=== PATIENT | female | born 1955 | race African-American/Black ===

== ENCOUNTER 2016-09-19 06:33 | Outpatient (CLI) | payer MEDICARE, OTHER ==
[~2016-09-19 06:33] MED LIST: ALBUTEROL SULF8.5 GM INH; ASPIR 8181 MG ORAL; ASPIRIN EC325 MG ORAL; BENADRYL25 MG ORAL; BENAZEPRIL HCL10 MG ORAL; CYPROHEPTADINE H4 MG PO; ENALAPRIL MALEA20 MG ORAL; KEFLEX500 MG ORAL; LOSARTAN POTASS50 MG ORAL; MEGESTROL ACETA40 MG PO; NYSTATIN1 EAC1 PO; OMEPRAZOLE10 M1 ORAL; ONDANSETRON ODT4 MG ORAL; RESTASIS1 EACH BOTH EYES; ZITHROMAX250 MG ORAL
--- NOTE | 2016-09-19 10:10 | Diagnostic Imaging Report ---
Clinical Indication: SOB Technique: Spiral acquisition obtained through the chest. No IV contrast utilized, per high resolution protocol. Axial 5 x 5 mm slices were reconstructed. Axial 1 mm thick slices were reconstructed using high resolution algorithm at 10 mm intervals. Multiplanar reconstructions generated. Total dose length product 634 mGycm. CTDIvol(s) 18 mGy. Dose reduction achieved using automated exposure control Comparison: None Findings: A calcified granuloma is seen in the posterior right upper lobe, adjacent to the pleural surface. A calcified granuloma is seen at the left lung base and the third in the left upper lobe. There are calcifications within bilateral hilar lymph nodes.. Some linear opacities are seen at the left lung base, likely reflecting scarring. The lungs and pleural spaces are otherwise clear. No infiltrates, effusions, congestion, masses, or nodules. High-resolution images are unremarkable demonstrating no evidence of interstitial septal thickening, bronchiectasis, nodularity, groundglass opacity, or other manifestations of interstitial disease. Included portions of the thyroid are unremarkable. No mediastinal or hilar mass or adenopathy. Normal heart size. No pericardial effusion. Unremarkable esophagus Somewhat prominent nodes are seen the bilateral axillae, measuring up to 2.7 cm long axis dimension. There are somewhat prominent supraclavicular nodes. No chest wall mass or adenopathy demonstrated. The bones are unremarkable except for mild degenerative spondylosis changes. The included upper abdominal anatomy demonstrates a calcified granuloma within the right hepatic lobe. There are prominent but not frankly enlarged retroperitoneal lymph nodes. Impression: Evidence of old granulomatous disease in the bilateral pulmonary parenchyma and bilateral timothy, as well as within the liver No evidence of acute pulmonary disease. No evidence of interstitial disease Prominent borderline enlarged bilateral axillary lymph nodes. Prominent cervical, supraclavicular, and retroperitoneal nodes. Adenopathy not excludable. Correlate with clinical findings The CT scanner at [facility] is accredited by the [employer] and the scans are performed using protocols designed to limit radiation exposure to as low as reasonably achievable to attain images of sufficient resolution adequate for diagnostic evaluation.
== END 2016-09-19 08:30 | disposition home or self-care (01) ==
LOC: CAT 06:33
DX: R05 Cough (principal); R07.9 Chest pain, unspecified; R06.02 Shortness of breath; R59.9 Enlarged lymph nodes, unspecified; D71 Functional disorders of polymorphonuclear neutrophils
CPT/HCPCS: 71250

== ENCOUNTER 2017-01-21 09:47 | Emergency (ER) | payer MEDICARE, OTHER ==
[~2017-01-21] VITALS: Ht 157.5 cm; Wt 67.6 kg
--- NOTE | 2017-01-21 10:24 | Emergency Room Report ---
History of Present Illness General Chief Complaint: Pain Source: Patient Present Illness HPI Is a 61-year-old female who presented after increased facial swelling. The patient was noted to have swelling increased of bilateral the face near her sinuses. The patient had been seen by her ENT who had started her on clarithromycin. The patient reported having taken the medications for approximately 2 daysShe denies any fever Allergies: Coded Allergies: IBUPROFEN (Verified Allergy, Unknown, 10/28/15) PEANUT (Verified Allergy, Unknown, 11/27/08) PENICILLINS (Unverified Allergy, Unknown, 10/28/15) SULFA (SULFONAMIDE ANTIBIOTICS) (Verified Allergy, Unknown, 10/28/15) TOMATO (Verified Allergy, Unknown, 10/05/12) Uncoded Allergies: PENICILLIN (Allergy, Unknown, 10/28/15) Patient History Past Medical History: see triage record Reviewed Nursing Documentation: PMH: Agreed, PSxH: Agreed Nursing Documentation-PMH Hx Cardiac Problems: Yes - murmur Hx Hypertension: Yes Hx Gastrointestinal Problems: Yes - Acid reflux Hx Neurological Problems: Yes - Sjorn's syndrome, Raynaud's syndrome, osteoarthritis Review of Systems All Other Systems: negative except mentioned in HPI Physical Exam Vital Signs Date Time Temp Pulse Resp B/P (MAP) Pulse Ox O2 Delivery O2 Flow Rate FiO2 01/21/17 09:51 97.9 90 20 128/72 99 Room Air Sp02 EP Interpretation: reviewed, normal General Appearance: normal inspection, well appearing, no apparent distress, alert, GCS 15, non-toxic Head: atraumatic ENT: normal ENT inspection, hearing grossly normal, normal voice Neck: normal inspection, full range of motion, supple, no bony tend Respiratory: normal inspection, lungs clear, normal breath sounds, no respiratory distress, no retraction, no wheezing Cardiovascular #1: regular rate, rhythm, no edema Gastrointestinal: normal inspection, normal bowel sounds, non tender, soft, no guarding, no hernia Genitourinary: no CVA tenderness Musculoskeletal: normal inspection, back normal, normal range of motion Neurologic: normal inspection, alert, responsive, speech normal Psychiatric: normal inspection, judgement/insight normal, mood/affect normal Skin: normal inspection, normal color, no rash Medical Decision Making Last Vital Signs Date Time Temp Pulse Resp B/P (MAP) Pulse Ox O2 Delivery O2 Flow Rate FiO2 01/21/17 09:51 97.9 90 20 128/72 99 Room Air Referrals: NON PHYSICIAN (PCP) Mt Goldman Jan 21, 2017 10:24
[2017-01-21] MEDS ORDERED: Morphine Sulfate 2mg/ml Inj IVP ONE (10:30)
[2017-01-21] MEDS ORDERED: Acetaminophen 500mg (ES) tab ORAL ONE (10:30)
[2017-01-21 10:42] LABS: BASOPHILS % (AUTO) 0.7 % (0.0-2.0); EOSINOPHILS % (AUTO) 1.2 % (0.0-3.0); LYMPHOCYTES % (AUTO) 25.9 % (20.0-45.0); MEAN CORPUSCULAR HEMOGLOBIN 25.1 PG (27.0-31.0); MEAN CORPUSCULAR HGB CONC 30.9 G/DL (32.0-36.0); MEAN CORPUSCULAR VOLUME 81 FL (80-99); MEAN PLATELET VOLUME 6.6 FL (6.5-10.1); MONOCYTES % (AUTO) 12.3 % (1.0-10.0); PLATELET COUNT 283 K/UL (150-450); RED BLOOD COUNT 3.83 M/UL (4.20-5.40); RED CELL DISTRIBUTION WIDTH 14.3 % (11.6-14.8); WHITE BLOOD COUNT 6.3 K/UL (4.8-10.8)
[2017-01-21 10:48] LABS: ALANINE AMINOTRANSFERASE 7 U/L (3-33); ANION GAP 13 (5-15); ASPARTATE AMINO TRANSFERASE 18 U/L (5-40); CALCIUM 9.3 mg/dL (8.6-10.2); CARBON DIOXIDE 26 mEQ/L (20-30); CHLORIDE 96 mEQ/L (98-107); CREATININE 0.8 mg/dL (0.5-0.9); GLOMERULAR FILTRATION RATE > 60 mL/min (>60); HEMOLYSIS 43; SODIUM 135 mEQ/L (135-145); TOTAL PROTEIN 7.9 g/dL (6.6-8.7)
--- NOTE | 2017-01-21 12:01 | Diagnostic Imaging Report ---
Indication: Facial pain Technique: CT maxillofacial was performed utilizing automated exposure control with intravenous contrast material. Axial and coronal images were generated. CT dose: Total DLP 628 mGycm; CTDI vol 28.2 mGy Comparison: None Findings: There is premaxillary and infranasal stranding is noted. Within the bilateral nasal/premaxillary soft tissues, there are small bilateral hypodense areas measuring approximately 9 mm on the right and 10 mm on the left series 3 image 39 and series 5 image 9 abutting the anteromedial aspects of the bilateral maxillary sinuses. There is mild mucosal thickening of the paranasal sinuses but no paranasal sinus air-fluid levels are identified. The orbits are grossly unremarkable. Visualized intracranial compartment is unremarkable. Small bilateral cervical nodes are seen measuring up to 10 mm. Impression: Premaxillary and infranasal subcutaneous stranding. Small bilateral hypodense areas with subtle rim enhancement involving the bilateral nasal/premaxillary soft tissues measuring 9 mm on the right and 10 mm on the left abutting the anteromedial aspects of the bilateral maxillary sinuses series 3 image 39 and series 5 image 9. Findings could represent phlegmon although early abscess cannot be excluded. Clinical correlation/followup recommended. Minimal mucosal thickening of the paranasal sinuses. No evidence of acute sinusitis. The CT scanner at [facility] is accredited by the [employer] and the scans are performed using protocols designed to limit radiation exposure to as low as reasonably achievable to attain images of sufficient resolution adequate for diagnostic evaluation.
[2017-01-21] MEDS ORDERED: NORCO 5-325 TA1 EACH ORAL (12:15)
[2017-01-21 12:35] VITALS: BP 130/82
[2017-01-21 12:36] VITALS: BP 132/97
== END 2017-01-21 12:37 | disposition home or self-care (01) ==
LOC: EMR 10:07
DX: R60.0 Localized edema (principal); I10 Essential (primary) hypertension; K21.9 Gastro-esophageal reflux disease without esophagitis; Z88.2 Allergy status to sulfonamides; Z88.0 Allergy status to penicillin; Z88.6 Allergy status to analgesic agent; Z91.010 Allergy to peanuts
CPT/HCPCS: 36415; 70488; 80053; 85025; 99284; Q9967

== ENCOUNTER 2017-01-25 13:39 | Emergency (ER) | payer MEDICARE, OTHER ==
[~2017-01-25] VITALS: Ht 157.5 cm; Wt 67.6 kg
[~2017-01-25 13:39] MED LIST changes: +NORCO 5-325 TA1 EACH ORAL
[2017-01-25 13:58] VITALS: BP 186/119
--- NOTE | 2017-01-25 14:13 | Emergency Room Report ---
History of Present Illness General Chief Complaint: Edema Source: Patient Present Illness HPI Patient presented for a right-sided facial swelling. The patient noted this gradual onset. Patient had been previously prescribed clairithromycin. Patient was noted to have increased swelling to the right side of her face. The patient been previously seen by ENT and was started on oral antibiotics. Patient was seen by me and had previous imaging study which showed phlegmon bilaterally to her face. She denied any fever. Allergies: Coded Allergies: PEANUT (Verified Allergy, Severe, Anaphylaxis, 01/25/17) IBUPROFEN (Verified Allergy, Intermediate, 01/25/17) bloody nose PENICILLINS (Unverified Allergy, Intermediate, Hives, 01/25/17) swelling SULFA (SULFONAMIDE ANTIBIOTICS) (Verified Allergy, Intermediate, Hives, ) DIPHENHYDRAMINE (Verified Allergy, Mild, Itching, 01/25/17) TOMATO (Verified Allergy, Unknown, Itching, 01/25/17) Uncoded Allergies: PENICILLIN (Allergy, Unknown, 10/28/15) Patient History Past Medical History: see triage record Reviewed Nursing Documentation: PMH: Agreed, PSxH: Agreed Nursing Documentation-PMH Hx Cardiac Problems: Yes - murmur Hx Hypertension: Yes Hx Gastrointestinal Problems: Yes - Acid reflux Hx Neurological Problems: Yes - Sjorn's syndrome, Raynaud's syndrome, osteoarthritis Review of Systems All Other Systems: negative except mentioned in HPI Physical Exam Vital Signs Date Time Temp Pulse Resp B/P (MAP) Pulse Ox O2 Delivery O2 Flow Rate FiO2 01/25/17 13:44 98.4 87 18 186/119 100 Room Air Sp02 EP Interpretation: reviewed, normal General Appearance: normal inspection, well appearing, no apparent distress, alert, GCS 15 Head: atraumatic ENT: normal ENT inspection, hearing grossly normal, normal voice, other - facial swelling slight increased from prior visit Neck: normal inspection, full range of motion, supple, no bony tend Respiratory: normal inspection, lungs clear, normal breath sounds, no respiratory distress, no retraction, no wheezing Cardiovascular #1: regular rate, rhythm, no edema Gastrointestinal: normal inspection, normal bowel sounds, non tender, soft, no guarding, no hernia Genitourinary: no CVA tenderness Musculoskeletal: normal inspection, back normal, normal range of motion Neurologic: normal inspection, alert, responsive, speech normal Psychiatric: normal inspection, judgement/insight normal, mood/affect normal Skin: no rash, other - right side slight swelling no fluctuance Medical Decision Making Diagnostic Impression: Primary Impression: Cellulitis of face ER Course Patient presented for increased facial swelling. Differential diagnosis included was not limited to abscess, cellulitis, allergic reaction and among others. Because of complexity of patient's case laboratory testing was ordered. The patient was noted to have recent CT of the facial area which showed some area of infection. The patient had previously been taking antibiotics but had discontinued antibiotics despite my previous advise to continue. The patient was noted to have normal white blood count. The patient was given IV steroids. The patient was also started on IV antibiotics. The patient is advised to follow up with primary care doctor in 1-2 days. Patient is advised to return if any worsening condition or if any changes in status that are concerning.Patient was advised followup with her ENT physician. Labs Test 01/25/17 14:16 White Blood Count 6.1 K/UL (4.8-10.8) Red Blood Count 3.82 M/UL (4.20-5.40) Hemoglobin 9.3 G/DL (12.0-16.0) Hematocrit 30.6 % (37.0-47.0) Mean Corpuscular Volume 80 FL (80-99) Mean Corpuscular Hemoglobin 24.3 PG (27.0-31.0) Mean Corpuscular Hemoglobin Concent 30.3 G/DL (32.0-36.0) Red Cell Distribution Width 14.0 % (11.6-14.8) Platelet Count 318 K/UL (150-450) Mean Platelet Volume 6.1 FL (6.5-10.1) Neutrophils (%) (Auto) 57.2 % (45.0-75.0) Lymphocytes (%) (Auto) 28.0 % (20.0-45.0) Monocytes (%) (Auto) 12.3 % (1.0-10.0) Eosinophils (%) (Auto) 1.2 % (0.0-3.0) Basophils (%) (Auto) 1.3 % (0.0-2.0) Prothrombin Time 10.1 SEC (9.30-11.50) Prothromb Time International Ratio 1.0 (0.9-1.1) Activated Partial Thromboplast Time 29 SEC (23-33) Sodium Level 137 mEQ/L (135-145) Potassium Level 3.1 mEQ/L (3.4-4.9) Chloride Level 97 mEQ/L (98-107) Carbon Dioxide Level 27 mEQ/L (20-30) Anion Gap 13 (5-15) Blood Urea Nitrogen 11 mg/dL (7-23) Creatinine 0.6 mg/dL (0.5-0.9) Estimat Glomerular Filtration Rate > 60 mL/min (>60) Glucose Level 112 mg/dL (74-106) Calcium Level 9.5 mg/dL (8.6-10.2) Total Bilirubin 0.4 mg/dL (0.0-1.2) Aspartate Amino Transf (AST/SGOT) 16 U/L (5-40) Alanine Aminotransferase (ALT/SGPT) 7 U/L (3-33) Alkaline Phosphatase 95 U/L (35-104) Total Protein 8.1 g/dL (6.6-8.7) Albumin 4.0 g/dL (3.5-5.2) Globulin 4.1 g/dL Albumin/Globulin Ratio 0.9 (1.0-2.7) Last Vital Signs Date Time Temp Pulse Resp B/P (MAP) Pulse Ox O2 Delivery O2 Flow Rate FiO2 01/25/17 13:58 98.4 18 186/119 100 Room Air 01/25/17 13:58 87 Status: improved Disposition: HOME, SELF-CARE Condition: Stable Scripts Prednisone* (PREDNISONE*) 20 Mg Tablet 40 MG ORAL DAILY, #10 TAB Prov: Mt Goldman 01/25/17 Levofloxacin (LEVOFLOXACIN*) 500 Mg Tablet 500 MG ORAL DAILY, #14 TAB Prov: Mt Goldman 01/25/17 Mt Goldman Jan 25, 2017 14:13
[2017-01-25] MEDS ORDERED: Solu-MEDROL 125mg Inj IVP ONE (14:15)
[2017-01-25 14:38] LABS: BASOPHILS % (AUTO) 1.3 % (0.0-2.0); EOSINOPHILS % (AUTO) 1.2 % (0.0-3.0); MEAN CORPUSCULAR HEMOGLOBIN 24.3 PG (27.0-31.0); MEAN CORPUSCULAR HGB CONC 30.3 G/DL (32.0-36.0); MEAN CORPUSCULAR VOLUME 80 FL (80-99); MEAN PLATELET VOLUME 6.1 FL (6.5-10.1); MONOCYTES % (AUTO) 12.3 % (1.0-10.0); NEUTROPHILS % (AUTO) 57.2 % (45.0-75.0); PLATELET COUNT 318 K/UL (150-450); RED BLOOD COUNT 3.82 M/UL (4.20-5.40); WHITE BLOOD COUNT 6.1 K/UL (4.8-10.8)
[2017-01-25 14:49] LABS: PROTHROMBIN TIME 10.1 SEC (9.30-11.50)
[2017-01-25 14:56] LABS: ALANINE AMINOTRANSFERASE 7 U/L (3-33); ALBUMIN/GLOBULIN RATIO 0.9 (1.0-2.7); ANION GAP 13 (5-15); ASPARTATE AMINO TRANSFERASE 16 U/L (5-40); CALCIUM 9.5 mg/dL (8.6-10.2); CARBON DIOXIDE 27 mEQ/L (20-30); CHLORIDE 97 mEQ/L (98-107); CREATININE 0.6 mg/dL (0.5-0.9); GLOMERULAR FILTRATION RATE > 60 mL/min (>60); HEMOLYSIS 29; POTASSIUM 3.1 mEQ/L (3.4-4.9); SODIUM 137 mEQ/L (135-145); TOTAL PROTEIN 8.1 g/dL (6.6-8.7)
[2017-01-25] MEDS ORDERED: LEVOFLOXACIN500 MG ORAL (15:28)
[2017-01-25] MEDS ORDERED: PREDNISONE20 MG ORAL (15:29)
[2017-01-25 15:49] VITALS: BP 191/114
[2017-01-25 15:50] VITALS: BP 191/114
== END 2017-01-25 15:54 | disposition home or self-care (01) ==
LOC: EMR 14:16
DX: L03.211 Cellulitis of face (principal); I10 Essential (primary) hypertension; K21.9 Gastro-esophageal reflux disease without esophagitis; Z88.6 Allergy status to analgesic agent; Z91.010 Allergy to peanuts; Z88.2 Allergy status to sulfonamides; Z88.0 Allergy status to penicillin; Z88.8 Allergy status to other drugs, medicaments and biological substances; Z91.018 Allergy to other foods
CPT/HCPCS: 36415; 80053; 85025; 85610; 85730; 96365; 96375; 99284; J1956; J2930; J8499

== ENCOUNTER 2017-02-07 11:09 | Outpatient (CLI) | payer MEDICARE, OTHER ==
[~2017-02-07 11:09] MED LIST changes: +LEVOFLOXACIN500 MG ORAL; +PREDNISONE20 MG ORAL
--- NOTE | 2017-02-07 12:38 | Diagnostic Imaging Report ---
Indication: Right shoulder pain Technique: 3 views of the right shoulder Comparison: none Findings: No acute fractures. No dislocations. Surgical clips are seen in the right axilla. Granulomas calcifications are seen in the upper lobe of the right lung Impression:No acute process. Incidental findings as noted
--- NOTE | 2017-02-07 12:39 | Diagnostic Imaging Report ---
Indication: PAIN Technique: 3 views of the left shoulder Comparison: none Findings: Small osteophyte is seen in the inferior left humeral head. No acute fractures. No dislocations. Joint spaces are preserved Impression:Minimal degenerative change. No acute bony trauma
--- NOTE | 2017-02-07 13:01 | Diagnostic Imaging Report ---
Indication: PAIN Technique: 3 views of the left knee Comparison: None Findings:There is a small superior pole patellar traction osteophytes. No acute fractures. No dislocations. The joint spaces are preserved. No suprapatellar effusion Impression:Minimal degenerative changes. No acute bony trauma
--- NOTE | 2017-02-07 13:01 | Diagnostic Imaging Report ---
Indication: PAIN Technique: 3 views of the right knee Comparison: None Findings:No acute fractures. No dislocations. No suprapatellar effusion. There is questionably slight patella baja deformity. Impression:Possible slight patella baja deformity No acute process
== END 2017-02-07 13:09 | disposition home or self-care (01) ==
LOC: RAD 11:09
DX: M25.512 Pain in left shoulder (principal); M25.511 Pain in right shoulder; M25.562 Pain in left knee; M25.561 Pain in right knee; M25.712 Osteophyte, left shoulder

== ENCOUNTER 2017-07-27 09:37 | Emergency (ER) | payer MEDICARE, OTHER ==
[~2017-07-27] VITALS: Ht 160 cm; Wt 56.7 kg
[2017-07-27] MEDS ORDERED: Norco 5mg/325mg tab ORAL ONE (10:15)
[2017-07-27] MEDS ORDERED: Losartan 25mg tab ORAL ONE (10:15)
[2017-07-27] MEDS ORDERED: ERYTHROMYCIN1 G1 OP (10:28)
--- NOTE | 2017-07-27 10:31 | Emergency Room Report ---
History of Present Illness General Chief Complaint: Eye Problems Source: Patient Present Illness HPI 61-year-old female with history of hypertension comes in with complaints of having left eye redness, she reports her right eye was red yesterday, now her left eye is red She reports that the right eye didn't hurt but the left eye does hurt, but denies blurred vision, denies foreign body sensation to the eye, denies any injuries, denies contact lens use Allergies: Coded Allergies: PEANUT (Verified Allergy, Severe, Anaphylaxis, 01/25/17) IBUPROFEN (Verified Allergy, Intermediate, 01/25/17) bloody nose PENICILLINS (Unverified Allergy, Intermediate, Hives, 01/25/17) swelling SULFA (SULFONAMIDE ANTIBIOTICS) (Verified Allergy, Intermediate, Hives, ) DIPHENHYDRAMINE (Verified Allergy, Mild, Itching, 01/25/17) TOMATO (Verified Allergy, Unknown, Itching, 01/25/17) Uncoded Allergies: PENICILLIN (Allergy, Unknown, 10/28/15) Patient History Past Medical History: see triage record Reviewed Nursing Documentation: PMH: Agreed; PSxH: Agreed Nursing Documentation-PMH Hx Cardiac Problems: Yes - murmur Hx Hypertension: Yes Hx Gastrointestinal Problems: Yes - Acid reflux Hx Neurological Problems: Yes - Sjorn's syndrome, Raynaud's syndrome, osteoarthritis Review of Systems All Other Systems: negative except mentioned in HPI Physical Exam Vital Signs Date Time Temp Pulse Resp B/P (MAP) Pulse Ox O2 Delivery O2 Flow Rate FiO2 07/27/17 09:43 97.9 77 20 219/128 99 Room Air 97.9 Sp02 EP Interpretation: reviewed, normal General Appearance: no apparent distress, alert, non-toxic Head: normocephalic Eyes: left eye lid inflammation, left eye Scleral Injection; bilateral eye normal inspection, bilateral eye PERRL, bilateral eye EOMI ENT: normal ENT inspection, hearing grossly normal, normal pharynx, no angioedema, normal voice, moist mucus membranes Neck: normal inspection, full range of motion, supple, supple/symm/no masses Respiratory: chest non-tender, lungs clear, normal breath sounds, chest symmetrical, palpation of chest normal Cardiovascular #1: normal peripheral pulses, regular rate, rhythm Cardiovascular #2: 2+ radial (R), 2+ radial (L) Gastrointestinal: normal inspection, non tender, soft, no mass, no guarding, no rebound Rectal: deferred Genitourinary: normal inspection, no CVA tenderness Musculoskeletal: back normal, gait/station normal, normal range of motion, non- tender, no calf tenderness Neurologic: alert, responsive, leather softener III-XII nml as tested, motor strength/tone normal, sensory intact, speech normal Psychiatric: judgement/insight normal, memory normal, mood/affect normal, no suicidal/homicidal ideation Skin: normal color, no rash, warm/dry, normal turgor Lymphatic: no adenopathy Medical Decision Making Diagnostic Impression: Primary Impression: Blepharitis ER Course 62-year-old female with left eye blepharitis No stye or chalazion seen Patient with no visual symptoms Patient with high blood pressure secondary to history of hypertension and not taking meds today Left eye is painful, but normal pupils, normal cornea, normal vision, do not suspect glaucoma Last Vital Signs Date Time Temp Pulse Resp B/P (MAP) Pulse Ox O2 Delivery O2 Flow Rate FiO2 07/27/17 10:20 219/128 07/27/17 10:19 97.9 07/27/17 09:43 77 20 99 Room Air Status: improved Disposition: HOME, SELF-CARE Condition: Stable Scripts Erythromycin Base (Erythromycin) 1 Gm Oint...g. 1 GM OP QID for 5 Days, GM Prov: VIVIEN STOCKTON M.D 07/27/17 Patient Instructions: Blepharitis, [id number], Viral Conjunctivitis VIVIEN STOCKTON M.D Jul 27, 2017 10:31
[2017-07-27 10:40] VITALS: BP 198/100
== END 2017-07-27 10:50 | disposition home or self-care (01) ==
LOC: EMR 10:30
DX: H01.006 Unspecified blepharitis left eye, unspecified eyelid (principal); I10 Essential (primary) hypertension; Z88.6 Allergy status to analgesic agent; Z91.010 Allergy to peanuts; Z88.0 Allergy status to penicillin; Z88.2 Allergy status to sulfonamides; Z91.018 Allergy to other foods
CPT/HCPCS: 99283

== ENCOUNTER 2017-11-13 07:10 | Emergency (ER) | payer MEDICARE, OTHER ==
[~2017-11-13] VITALS: Ht 157.5 cm; Wt 68.9 kg
[~2017-11-13 07:10] MED LIST changes: +ERYTHROMYCIN1 G1 OP
[2017-11-13] MEDS ORDERED: ZYRTEC10 M3 ORAL (07:44)
[2017-11-13] MEDS ORDERED: PREDNISONE20 MG ORAL (07:44)
[2017-11-13 08:00] VITALS: BP 101/68
[2017-11-13 08:20] VITALS: BP 101/68
--- NOTE | 2017-11-13 09:21 | Emergency Room Report ---
History of Present Illness General Chief Complaint: Skin Rash/Abscess Source: Patient, Medical Record Present Illness HPI Patient presents with signs of reaction to which she feels is likely ant bites Patient has several areas on the lower extremity and one in the lower back Complains of some mild discomfort to the localized areas there are several areas of blister formation Denies any fevers or chills Denies any chest pain or shortness of breath Allergies: Coded Allergies: PEANUT (Verified Allergy, Severe, Anaphylaxis, 01/25/17) IBUPROFEN (Verified Allergy, Intermediate, 01/25/17) bloody nose DIPHENHYDRAMINE (Verified Allergy, Mild, Itching, 01/25/17) TOMATO (Verified Allergy, Unknown, Itching, 01/25/17) Patient History Past Medical History: see triage record Pertinent Family History: none Reviewed Nursing Documentation: PMH: Agreed; PSxH: Agreed Nursing Documentation-PMH Past Medical History: No History, Except For Hx Cardiac Problems: Yes - murmur Hx Hypertension: Yes Hx Gastrointestinal Problems: Yes - Acid reflux Hx Neurological Problems: Yes - Sjorn's syndrome, Raynaud's syndrome, osteoarthritis Review of Systems All Other Systems: negative except mentioned in HPI Physical Exam Vital Signs Date Time Temp Pulse Resp B/P (MAP) Pulse Ox O2 Delivery O2 Flow Rate FiO2 11/13/17 07:12 97.9 72 18 99/66 98 Room Air 97.9 Sp02 EP Interpretation: reviewed, normal General Appearance: well appearing, no apparent distress Head: normocephalic, atraumatic Eyes: bilateral eye PERRL, bilateral eye EOMI ENT: normal pharynx, no angioedema Neck: supple, thyroid normal Respiratory: lungs clear Cardiovascular #1: regular rate, rhythm, no edema Gastrointestinal: non tender, soft Musculoskeletal: normal inspection, back normal Neurologic: alert, oriented x3, responsive Skin: other - Patient has several areas involving the lower extremity one of the lower back, mild circular erythematous lesions several have mild raised appearance and blister formation, no obvious flaring F erythema no fluctuance Lymphatic: no adenopathy Medical Decision Making Diagnostic Impression: Primary Impression: insect bite ER Course Patient has dermatitis consistent with likely insect bites Causing local reactions patient is placed on medications appropriately and will have initial conservative outpatient trial Last Vital Signs Date Time Temp Pulse Resp B/P (MAP) Pulse Ox O2 Delivery O2 Flow Rate FiO2 11/13/17 08:20 72 18 101/68 98 Room Air 11/13/17 07:12 97.9 97.9 Status: unchanged Disposition: HOME, SELF-CARE Condition: Stable Scripts Cetirizine Hcl (ZYRTEC) 10 Mg Capsule 10 MG ORAL DAILY, #15 CAP 0 Refills Prov: Jass Morris DO 11/13/17 Prednisone* (PREDNISONE*) 20 Mg Tablet 20 MG ORAL BID, #8 TAB Prov: Jass Morris DO 11/13/17 Referrals: NOT CHOSEN IPA/MD,REFERRING Patient Instructions: Insect Bite, [id number] Additional Instructions: Patient is provided with the discharge instructions notified to follow up with primary doctor in the next 2-3 days otherwise return to the er with any worsening symptoms. Please note that this report is being documented using [employer] technology. This can lead to erroneous entry secondary to incorrect interpretation by the dictating instrument. Jass Morris DO Nov 13, 2017 09:21
== END 2017-11-13 08:00 | disposition home or self-care (01) ==
LOC: EMR 07:42
DX: S80.869A Insect bite (nonvenomous), unspecified lower leg, initial encounter (principal); S30.860A Insect bite (nonvenomous) of lower back and pelvis, initial encounter; W57.XXXA Bitten or stung by nonvenomous insect and other nonvenomous arthropods, initial encounter; Y92.9 Unspecified place or not applicable; R21 Rash and other nonspecific skin eruption; Z91.018 Allergy to other foods; Z88.6 Allergy status to analgesic agent; Z88.8 Allergy status to other drugs, medicaments and biological substances
CPT/HCPCS: 99284

== ENCOUNTER 2018-09-09 09:22 | Emergency (ER) | payer MEDICARE, OTHER ==
[~2018-09-09] VITALS: Ht 157.5 cm; Wt 66.2 kg
[~2018-09-09 09:22] MED LIST changes: +ZYRTEC10 M3 ORAL
--- NOTE | 2018-09-09 09:35 | NUR ---
ED Nurse Note: Pt came from Dr. Butler's office due to sinus infection x 1 week ago. According to pt, pt did not see her doctor, because her BP was systolic 200. Denies having chest pain, dizziness, headache. Pt states that she took her BP meds catapres at 0600 this morning. Pt is A + O x4. Ambulatory. Skin warm to touch.
[2018-09-09] MEDS ORDERED: UNOBMED (09:36)
[2018-09-09 09:37] VITALS: BP 222/126
[2018-09-09] MEDS ORDERED: cloNIDine 0.2mg Tab ORAL ONE (10:00)
[2018-09-09] MEDS ORDERED: HYDROcodone/Acetamin 5/325 tab ORAL ONE (10:00)
--- NOTE | 2018-09-09 10:03 | Emergency Room Report ---
History of Present Illness General Chief Complaint: General Complaint Present Illness HPI Patient has a history of hypertension. Patient is compliant with medications. Patient states that she is developed sinus pain in the last few days thinks that she may have a sinus infection. She states that may be that causing her blood pressure to be elevated. She denies any headache nausea vomiting diarrhea chills. Denies any chest pain shortness of breath. Patient was seen by Dr. kristen Hoang office today and sent here for further evaluation because severely elevated blood pressure. Symptoms noted to be mild to moderate. No other modifying factors. No other associated signs and symptoms. No other complaints were noted. Allergies: Coded Allergies: PEANUT (Verified Allergy, Severe, Anaphylaxis, 09/09/18) DIPHENHYDRAMINE (Verified Allergy, Mild, Itching, 09/09/18) TOMATO (Verified Allergy, Unknown, Itching, 09/09/18) Patient History Past Medical History: HTN, GERD, other Past Surgical History: none Pertinent Family History: none Social History: Denies: smoking, alcohol use, drug use Last Menstrual Period: 25 YEARS AGO Now: No Reviewed Nursing Documentation: PMH: Agreed; PSxH: Agreed Nursing Documentation-PMH Hx Cardiac Problems: Yes - murmur Hx Hypertension: Yes Hx Gastrointestinal Problems: Yes - Acid reflux Hx Neurological Problems: Yes - Sjogren's syndrome, Raynaud's syndrome, osteoarthritis Review of Systems All Other Systems: negative except mentioned in HPI Physical Exam Vital Signs Date Time Temp Pulse Resp B/P (MAP) Pulse Ox O2 Delivery O2 Flow Rate FiO2 09/09/18 09:24 97.9 82 16 96 Room Air 09/09/18 09:37 100 09/09/18 09:37 222/126 Sp02 EP Interpretation: reviewed, normal General Appearance: normal inspection, well appearing, no apparent distress, alert Head: atraumatic Eyes: bilateral eye normal inspection ENT: normal ENT inspection, hearing grossly normal, normal voice Neck: normal inspection, full range of motion, supple, no bony tend Respiratory: normal inspection, lungs clear, normal breath sounds, no respiratory distress, no retraction, no wheezing Cardiovascular #1: regular rate, rhythm, no edema Gastrointestinal: normal inspection, normal bowel sounds, non tender, soft, no guarding, no hernia Genitourinary: no CVA tenderness Musculoskeletal: normal inspection, back normal, normal range of motion Neurologic: normal inspection, alert, responsive, speech normal Psychiatric: normal inspection, judgement/insight normal, mood/affect normal Skin: normal inspection, normal color, no rash Medical Decision Making Diagnostic Impression: Primary Impression: Hypertensive urgency ER Course Patient presents to the emergency department today complaining of elevated blood pressure. Patient also complains of facial pain. Differential considerations include sinusitis, viral syndrome, acute coronary syndrome just name a few. Patient's exam is concerning for sinusitis. Will start patient on oral antibiotics. In addition patient has elevated blood pressure other considerations include hypertensive urgency versus emergency. Laboratory work- up was obtained to evaluate for endorgan damage. There was no evidence of endorgan damage. Patient was given clonidine with significant improvement in symptoms. Given the patient is improved significantly in terms of elevated blood pressure I feel the patient will be discharged. Dr. Solano was notified. Patient was advised to follow with Dr. Butler for possible adjustment of her antihypertensive medications. Patient is advised to follow up with primary doctor in 2-3 days and return the emergency room for any worsening symptoms and as needed. Labs Test 09/09/18 09:45 White Blood Count 3.7 K/UL (4.8-10.8) Red Blood Count 4.52 M/UL (4.20-5.40) Hemoglobin 10.9 G/DL (12.0-16.0) Hematocrit 35.4 % (37.0-47.0) Mean Corpuscular Volume 78 FL (80-99) Mean Corpuscular Hemoglobin 24.0 PG (27.0-31.0) Mean Corpuscular Hemoglobin Concent 30.7 G/DL (32.0-36.0) Red Cell Distribution Width 15.4 % (11.6-14.8) Platelet Count 251 K/UL (150-450) Mean Platelet Volume 6.0 FL (6.5-10.1) Neutrophils (%) (Auto) 39.9 % (45.0-75.0) Lymphocytes (%) (Auto) 44.1 % (20.0-45.0) Monocytes (%) (Auto) 12.1 % (1.0-10.0) Eosinophils (%) (Auto) 2.5 % (0.0-3.0) Basophils (%) (Auto) 1.4 % (0.0-2.0) Sodium Level 141 MMOL/L (136-145) Potassium Level 3.6 MMOL/L (3.5-5.1) Chloride Level 106 MMOL/L (98-107) Carbon Dioxide Level 28 MMOL/L (21-32) Anion Gap 7 mmol/L (5-15) Blood Urea Nitrogen 17 mg/dL (7-18) Creatinine 0.7 MG/DL (0.55-1.30) Estimat Glomerular Filtration Rate > 60 mL/min (>60) Glucose Level 114 MG/DL (74-106) Calcium Level 9.3 MG/DL (8.5-10.1) Total Bilirubin 0.5 MG/DL (0.2-1.0) Aspartate Amino Transf (AST/SGOT) 27 U/L (15-37) Alanine Aminotransferase (ALT/SGPT) 20 U/L (12-78) Alkaline Phosphatase 130 U/L (46-116) Total Creatine Kinase 105 U/L (26-308) Creatine Kinase MB 0.9 NG/ML (0.0-3.6) Creatine Kinase MB Relative Index 0.8 Troponin I 0.001 ng/mL (0.000-0.056) Total Protein 8.8 G/DL (6.4-8.2) Albumin 3.9 G/DL (3.4-5.0) Globulin 4.9 g/dL Albumin/Globulin Ratio 0.8 (1.0-2.7) EKG Diagnostic Results Rate: normal Rhythm: NSR ST Segments: no acute changes Rhythm Strip Diag. Results EP Interpretation: yes Rate: 74 Rhythm: NSR, no PVC's, no ectopy Last Vital Signs Date Time Temp Pulse Resp B/P (MAP) Pulse Ox O2 Delivery O2 Flow Rate FiO2 09/09/18 09:37 98.0 81 16 222/126 100 Room Air 09/09/18 09:37 100 Status: improved Disposition: HOME, SELF-CARE Condition: Stable Scripts Amoxicillin* (AMOXIL*) 500 Mg Capsule 500 MG ORAL THREE TIMES A DAY, #21 CAP Prov: Oliver Alvarado MD 09/09/18 Referrals: NON PHYSICIAN (PCP) Oliver Alvarado MD September 09, 2018 10:03
[2018-09-09 10:09] LABS: BASOPHILS % (AUTO) 1.4 % (0.0-2.0); EOSINOPHILS % (AUTO) 2.5 % (0.0-3.0); HEMATOCRIT 35.4 % (37.0-47.0); HEMOGLOBIN 10.9 G/DL (12.0-16.0); LYMPHOCYTES % (AUTO) 44.1 % (20.0-45.0); MEAN CORPUSCULAR VOLUME 78 FL (80-99); MONOCYTES % (AUTO) 12.1 % (1.0-10.0); NEUTROPHILS % (AUTO) 39.9 % (45.0-75.0); PLATELET COUNT 251 K/UL (150-450); RED BLOOD COUNT 4.52 M/UL (4.20-5.40); RED CELL DISTRIBUTION WIDTH 15.4 % (11.6-14.8); WHITE BLOOD COUNT 3.7 K/UL (4.8-10.8)
[2018-09-09 10:23] LABS: ANION GAP 7 mmol/L (5-15); BLOOD UREA NITROGEN 17 mg/dL (7-18); CALCIUM 9.3 MG/DL (8.5-10.1); CARBON DIOXIDE 28 MMOL/L (21-32); CHLORIDE 106 MMOL/L (98-107); CREATININE 0.7 MG/DL (0.55-1.30); POTASSIUM 3.6 MMOL/L (3.5-5.1); SODIUM 141 MMOL/L (136-145)
[2018-09-09 10:38] LABS: ALANINE AMINOTRANSFERASE 20 U/L (12-78); ALBUMIN 3.9 G/DL (3.4-5.0); ALBUMIN/GLOBULIN RATIO 0.8 (1.0-2.7); ALKALINE PHOSPHATASE 130 U/L (46-116); ASPARTATE AMINO TRANSFERASE 27 U/L (15-37); BILIRUBIN,TOTAL 0.5 MG/DL (0.2-1.0); CKMB 0.9 NG/ML (0.0-3.6); CREATINE KINASE 105 U/L (26-308)
[2018-09-09] MEDS ORDERED: AMOXICILLIN500 MG ORAL (10:57)
[2018-09-09 11:11] VITALS: BP 165/89
--- NOTE | 2018-09-09 11:13 | NUR ---
ER DISCHARGE NOTE: Patient is cleared to be discharged per ERMD, pt is aox4, on room air, with stable vital signs. pt was given dc and prescription instructions, pt was able to verbalize understanding, pt id band and iv site removed without complications. pt is able to ambulate with steady gait. pt took all belongings.
--- NOTE | 2018-09-10 14:22 | Cardiology Report ---
APPROVED REPORT EKG Measurement Heart [id number] ME [id number] Normal sinus rhythm Normal ECG
== END 2018-09-09 11:13 | disposition home or self-care (01) ==
LOC: EMR 09:45
DX: I16.0 Hypertensive urgency (principal); Z88.8 Allergy status to other drugs, medicaments and biological substances; I10 Essential (primary) hypertension; K21.9 Gastro-esophageal reflux disease without esophagitis; M19.90 Unspecified osteoarthritis, unspecified site; Z91.018 Allergy to other foods
CPT/HCPCS: 36415; 80053; 82550; 82553; 84484; 85025; 93005; 99283

== ENCOUNTER 2019-02-19 16:33 | Emergency (ER) | payer MEDICARE, OTHER ==
[~2019-02-19] VITALS: Ht 157.5 cm; Wt 66.2 kg
[~2019-02-19 16:33] MED LIST changes: +AMOXICILLIN500 MG ORAL; +UNOBMED
[2019-02-19 16:39] VITALS: BP 129/86
--- NOTE | 2019-02-19 17:39 | Emergency Room Report ---
History of Present Illness General Chief Complaint: Pain Source: Patient Present Illness HPI 63 Yo Female presents to the ED c/o 02/06 in severity pain, tenderness and palpable swelling in the rectum x 5 days. Pt. with hx of hemorrhoids. Pt. reports some constipation which is exacerbating her symptoms. Pt. states she has an appointment with a specialist regarding hemorrhoid surgery removal. Pt. denies blood or black tarry stools. Pt. denies abdominal pain. pt. denies fevers or chills. She has been doing hot sitz baths with minimal relief. No other aggravating or relieving factors at this time. Allergies: Coded Allergies: PEANUT (Verified Allergy, Severe, Anaphylaxis, 09/09/18) DIPHENHYDRAMINE (Verified Allergy, Mild, Itching, 09/09/18) TOMATO (Verified Allergy, Unknown, Itching, 09/09/18) Patient History Past Medical History: see triage record Past Surgical History: none Pertinent Family History: none Now: No Reviewed Nursing Documentation: PMH: Agreed; PSxH: Agreed Nursing Documentation-PMH Past Medical History: No History, Except For Hx Cardiac Problems: Yes - MURMUR Hx Hypertension: Yes Hx Gastrointestinal Problems: Yes - Acid reflux Hx Neurological Problems: Yes - Sjogren's syndrome, Raynaud's syndrome, osteoarthritis Review of Systems All Other Systems: negative except mentioned in HPI Physical Exam Vital Signs Date Time Temp Pulse Resp B/P (MAP) Pulse Ox O2 Delivery O2 Flow Rate FiO2 02/19/19 16:39 98.2 81 17 129/86 (100) 99 Room Air Sp02 EP Interpretation: reviewed, normal General Appearance: no apparent distress, alert, GCS 15, non-toxic Head: normocephalic, atraumatic Eyes: bilateral eye normal inspection, bilateral eye PERRL ENT: hearing grossly normal, normal voice Neck: full range of motion Respiratory: lungs clear, normal breath sounds, speaking full sentences Cardiovascular #1: regular rate, rhythm Gastrointestinal: non tender, soft, non-distended, no guarding Rectal: hemorrhoids - one moderate sized not thrombosed in the 6 o clock position. Genitourinary: normal inspection Musculoskeletal: back normal, gait/station normal, normal range of motion, non- tender Neurologic: alert, oriented x3, responsive, motor strength/tone normal, sensory intact, speech normal, grossly normal Psychiatric: judgement/insight normal Lymphatic: no adenopathy Medical Decision Making PA Attestation Dr. Alexandra is my supervising Physician whom patient management has been discussed with. Diagnostic Impression: Primary Impression: Acute hemorrhoid ER Course 63 Yo Female presents to the ED c/o 02/06 in severity pain, tenderness and palpable swelling in the rectum x 5 days. Pt. with hx of hemorrhoids. Pt. reports some constipation which is exacerbating her symptoms. Pt. states she has an appointment with a specialist regarding hemorrhoid surgery removal. Pt. denies blood or black tarry stools. Pt. denies abdominal pain. pt. denies fevers or chills. She has been doing hot sitz baths with minimal relief. No other aggravating or relieving factors at this time. Ddx considered but are not limited to constipation , anal fissure, perianal abscess, rectal wall tear, thrombosed hemorrhoid, hemorrhoid. Vital signs: are WNL, pt. is afebrile H&PE are most consistent with hemorrhoid , secondary to straining/ constipation. bowl sounds are normo active. ORDERS: Under quite at this time ED INTERVENTIONS: - Discussed the patient's self care interventions for hemorrhoids DISCHARGE: At this time pt. is stable for d/c to home. Will provide printed patient care instructions, and any necessary prescriptions. Care plan and follow up instructions have been discussed with the patient prior to discharge. Last Vital Signs Date Time Temp Pulse Resp B/P (MAP) Pulse Ox O2 Delivery O2 Flow Rate FiO2 02/19/19 16:39 98.2 81 17 129/86 99 Room Air Disposition: HOME, SELF-CARE Condition: Stable Patient Instructions: Hemorrhoids, [id number] Additional Instructions: Take medications as directed. Follow up with a Primary Care Provider in 3-5 days, even if your symptoms have resolved. --Please review list of primary care clinics, if you do not already have a primary care provider Return sooner to ED if new symptoms occur, or current symptoms become worse. - Please note that this Emergency Department Report was dictated using [employer]otemergency management consultant technology software, occasionally this can lead to erroneous entry secondary to interpretation by the dictation equipment. Rosario Cevallos Feb 19, 2019 17:39
[2019-02-19] MEDS ORDERED: LACTULOSE20 GM/301 ORAL (17:42)
[2019-02-19] MEDS ORDERED: ANUSOL-HC30 GM RC (17:42)
[2019-02-19] MEDS ORDERED: LD2JL30 TOPIC (17:42)
[2019-02-19 17:53] VITALS: BP 133/70
--- NOTE | 2019-02-19 17:53 | NUR ---
ER DISCHARGE NOTE: Pt was seen due to hemorrhoids. Patient is cleared to be discharged per PA, pt is aox4, on room air, with stable vital signs. pt was given dc and prescription instructions, pt was able to verbalize understanding, pt id band removed. pt is able to ambulate with steady gait. pt took all belongings.
== END 2019-02-19 17:53 | disposition home or self-care (01) ==
LOC: EMR 17:51
DX: K64.9 Unspecified hemorrhoids (principal); Z91.010 Allergy to peanuts; Z88.8 Allergy status to other drugs, medicaments and biological substances; Z91.018 Allergy to other foods; R01.1 Cardiac murmur, unspecified; I10 Essential (primary) hypertension; K21.9 Gastro-esophageal reflux disease without esophagitis; I73.00 Raynaud's syndrome without gangrene; M19.90 Unspecified osteoarthritis, unspecified site; M35.00 Sjogren syndrome, unspecified
CPT/HCPCS: 99282

== ENCOUNTER 2019-03-05 09:48 | Inpatient (IN) | payer MEDICARE, OTHER ==
[~2019-03-05] VITALS: Ht 157.5 cm; Wt 68.9 kg
[2019-03-05] VITALS (7 sets, daily range): BP systolic 106–143; BP diastolic 58–98
[~2019-03-05 09:48] MED LIST changes: +ANUSOL-HC30 GM RC; +LACTULOSE20 GM/301 ORAL; +LD2JL30 TOPIC
--- NOTE | 2019-03-05 10:00 | NUR ---
ED Nurse Note: Patient walked in ED from home c/o dizziness since last night. Pt aox4, no distress noted on room air. Pt states she had one episode of vomiting last night, denies diarrhea. Pt also c/o painful hemorrhoids x20 days. Pt placed in hospital gown, cont. monitor and storage bin tender and pulse ox.
[2019-03-05] MEDS ORDERED: LIDOCAINE700 M1 TP (10:07)
[2019-03-05] MEDS ORDERED: TRAMADOL HCL50 MG ORAL (10:07)
[2019-03-05] MEDS ORDERED: OMEPRAZOLE40 M1 ORAL (10:07)
[2019-03-05] MEDS ORDERED: LACTULOSE20 GM/301 ORAL (10:07)
[2019-03-05] MEDS ORDERED: ATIVAN2 MG ORAL (10:07)
[2019-03-05] MEDS ORDERED: CATAPRES0.3 MG ORAL (10:07)
[2019-03-05] MEDS ORDERED: CYPROHEPTADINE H4 MG PO (10:07)
[2019-03-05] MEDS ORDERED: NIFEDIPINE ER60 M2 ORAL (10:07)
--- NOTE | 2019-03-05 10:10 | NUR ---
ED Nurse Note: Xray at bedside
--- NOTE | 2019-03-05 10:10 | Emergency Room Report ---
History of Present Illness General Chief Complaint: Dizziness Source: Patient Present Illness HPI 63-year-old female with history of hypertension, Sjogren's syndrome, comes to the ER with complaints of having room spinning dizziness since yesterday with associated nausea but no vomiting, reports generalized weakness, also reports she has a known hemorrhoid history and has been bleeding intermittently for 1 month. Has any chest pain, headache, syncope, loss of consciousness, numbness, tingling, weakness. She does report burning in her anus occasionally with hard stools. Allergies: Coded Allergies: PEANUT (Verified Allergy, Severe, Anaphylaxis, 09/09/18) DIPHENHYDRAMINE (Verified Allergy, Mild, Itching, 09/09/18) TOMATO (Verified Allergy, Unknown, Itching, 09/09/18) Patient History Past Medical History: see triage record Last Menstrual Period: n/a Reviewed Nursing Documentation: PMH: Agreed; PSxH: Agreed Nursing Documentation-PMH Past Medical History: No History, Except For Hx Cardiac Problems: Yes - MURMUR Hx Hypertension: Yes Hx Gastrointestinal Problems: Yes - Acid reflux Hx Neurological Problems: Yes - Sjogren's syndrome, Raynaud's syndrome, osteoarthritis Review of Systems All Other Systems: negative except mentioned in HPI Physical Exam Vital Signs Date Time Temp Pulse Resp B/P (MAP) Pulse Ox O2 Delivery O2 Flow Rate FiO2 03/05/19 09:52 97.7 100 18 115/74 (88) 99 Room Air Sp02 EP Interpretation: reviewed, normal General Appearance: no apparent distress, alert, non-toxic Head: normocephalic Eyes: bilateral eye normal inspection, bilateral eye PERRL, bilateral eye EOMI , bilateral eye other - no nystagmus ENT: normal ENT inspection, hearing grossly normal, normal pharynx, no angioedema, normal voice, moist mucus membranes Neck: normal inspection, full range of motion, supple, supple/symm/no masses Respiratory: chest non-tender, lungs clear, normal breath sounds, chest symmetrical, palpation of chest normal Cardiovascular #1: normal peripheral pulses, regular rate, rhythm Cardiovascular #2: 2+ radial (R), 2+ radial (L) Gastrointestinal: normal inspection, non tender, soft, no mass, no guarding, no rebound Rectal: normal rectal tone, hemorrhoids - mild tenderness, no erythema, no fluctuance, no crepitus, 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 Genitourinary: normal inspection, no CVA tenderness Musculoskeletal: back normal, gait/station normal, normal range of motion, non- tender, no calf tenderness Neurologic: alert, oriented x3, responsive, appeals manager III-XII nml as tested, motor strength/tone normal, DTRs symmetric, sensory intact, cerebellar normal, normal gait, speech normal Psychiatric: judgement/insight normal, memory normal, mood/affect normal, no suicidal/homicidal ideation Lymphatic: no adenopathy Medical Decision Making Diagnostic Impression: Primary Impression: Dizziness Additional Impressions: Hemorrhoids Perirectal abscess Perirectal burning ER Course Patient with normal neuro exam, given meclizine. Patient has been here multiple times for various complaints. Normal workups in the past for elevated BP. Patient Hgb is baseline for her at 10.6 today. Do not suspect significant blood loss. Patient's main complaint is rectal pain. I do not suspect central vertigo. She did see her PMD on the of last month, just 1 week ago, since her hemorrhoids have been bothering her for 1 month. She's tried topical lidocaine , anusol, warm sitz baths, all without relief. Currently she reports loose stools, not hard ones recently, but is still having pain. Will dc with f/u with PMD for surgery referral to have hemorrhoids removed. Suspect possible thrombosed hemorroid vs. perirectal abscess, but lower suspicion for abscess based on normal wbc, exam findings. D/w Dr. Lacey, who reported patient can be admitted to Dr. Leonard, and Dr. Chacon came to evaluate for possible abscess vs. thrombosed hemorrhoid. Pt still with significant pain and tenderness, will admit to med-surgery. EKG Diagnostic Results EKG Time: 10:15 EP Interpretation: no stemi Rate: normal Rhythm: NSR ST Segments: no acute changes ASA given to the pt in ED: No Rhythm Strip Diag. Results Rhythm Strip Time: 10:09 EP Interpretation: yes Rate: 96 Rhythm: NSR, no PVC's, no ectopy Chest X-Ray Diagnostic Results Chest X-Ray Diagnostic Results : Chest X-Ray Ordered: Yes # of Views/Limited/Complete: 1 View Indication: Other - htn, dizziness EP Interpretation: Yes Interpretation: no consolidation, no effusion, no pneumothorax, no acute cardiopulmonary disease Impression: No acute disease Electronically Signed by: Vivien Humphries MD CT/MRI/US Diagnostic Results CT/MRI/US Diagnostic Results : Imaging Test Ordered: ct head noncontrast Impression no acute dz per radiology Last Vital Signs Date Time Temp Pulse Resp B/P (MAP) Pulse Ox O2 Delivery O2 Flow Rate FiO2 03/05/19 09:52 97.7 100 18 115/74 (88) 99 Room Air Disposition: ADMITTED INPATIENT Condition: Stable VIVIEN HUMPHRIES M.D Mar 05, 2019 10:10
[2019-03-05] MEDS ORDERED: Meclizine 25mg tab ORAL PRN (10:15)
--- NOTE | 2019-03-05 10:21 | NUR ---
ED Nurse Note: Blood and urine sample collected; sent to lab.
[2019-03-05 10:31] LABS: HEMATOCRIT 33.5 % (37.0-47.0); HEMOGLOBIN 10.6 G/DL (12.0-16.0); MEAN CORPUSCULAR VOLUME 78 FL (80-99); PLATELET COUNT 234 K/UL (150-450); RED BLOOD COUNT 4.29 M/UL (4.20-5.40); RED CELL DISTRIBUTION WIDTH 14.2 % (11.6-14.8); WHITE BLOOD COUNT 3.2 K/UL (4.8-10.8)
--- NOTE | 2019-03-05 10:36 | NUR ---
ED Nurse Note: Pt picked up for CT via w/c in stable condition.
[2019-03-05 10:44] LABS: ANION GAP 11 mmol/L (5-15); BLOOD UREA NITROGEN 34 mg/dL (7-18); CALCIUM 9.9 MG/DL (8.5-10.1); CARBON DIOXIDE 25 MMOL/L (21-32); CHLORIDE 104 MMOL/L (98-107); CREATININE 1.2 MG/DL (0.55-1.30); POTASSIUM 4.6 MMOL/L (3.5-5.1); SODIUM 140 MMOL/L (136-145)
[2019-03-05 10:49] LABS: ALANINE AMINOTRANSFERASE 25 U/L (12-78); ALBUMIN 4.5 G/DL (3.4-5.0); ALBUMIN/GLOBULIN RATIO 0.9 (1.0-2.7); ALKALINE PHOSPHATASE 120 U/L (46-116); ASPARTATE AMINO TRANSFERASE 31 U/L (15-37); BILIRUBIN,TOTAL 0.4 MG/DL (0.2-1.0)
--- NOTE | 2019-03-05 10:50 | NUR ---
ED Nurse Note: Pt back from CT; in stable condition
--- NOTE | 2019-03-05 11:21 | Diagnostic Imaging Report ---
Indications: Vertigo Technique: Spiral acquisitions obtained through the brain. Angled axial and coronal 5 x 5 mm slices were reconstructed. Total dose length product 1489 mGycm. CTDI vol(s) 62 mGy. Dose reduction achieved using automated exposure control Comparison: None. Findings: No acute intracranial hemorrhage or edema. No mass effect nor midline shift. Smith-white differentiation is normal. Normal size ventricles and extra axial CSF spaces. Visualized orbits, sinuses, and mastoids are unremarkable. The calvarium is intact. Impression: Negative The CT scanner at [facility] is accredited by the [employer] and the scans are performed using protocols designed to limit radiation exposure to as low as reasonably achievable to attain images of sufficient resolution adequate for diagnostic evaluation.
--- NOTE | 2019-03-05 11:37 | NUR ---
ED Nurse Note: ERMD at bedside
[2019-03-05] MEDS ORDERED: Morphine Sulfate 4mg/ml Inj (IV USE ONLY) IVP ONE (11:45)
--- NOTE | 2019-03-05 11:53 | NUR ---
ED Nurse Note: Dr Chacon at bedside
--- NOTE | 2019-03-05 12:02 | Consultation ---
History of Present Illness General Date patient seen: Mar 05, 2019 Reason for Hospitalization: Dizziness Present Illness HPI This is a very pleasant 63-year-old female with multiple medical comorbidities including Sjogrens syndrome who presented to the emergency department at [facility] complaining of dizziness, weakness, perianal pain for 20 days or more. Patient states that approximately 20 somewhat days ago she began to develop some perianal pain. She felt a palpable mass. She states that she has had hemorrhoids for the past 40 years since the of her first child. She has been dealing with them since with intermittent bleeding and discomfort but has never experienced pain like this before. States approximately 20 days ago began to notice a sharp pain in that area that was worse with palpation sitting and moving. Pain noted with bowel movements. States burning and discomfort at times. Intermittent bleeding noted. No nausea vomiting fever chills. Having some dizziness and lightheadedness. Came in for evaluation. Surgery called to evaluate given perirectal pain. Patient seen, patient evaluated, chart reviewed Allergies: Coded Allergies: PEANUT (Verified Allergy, Severe, Anaphylaxis, 09/09/18) DIPHENHYDRAMINE (Verified Allergy, Mild, Itching, 09/09/18) TOMATO (Verified Allergy, Unknown, Itching, 09/09/18) Medication History Scheduled Clonidine Hcl* (Catapres*), 0.3 MG ORAL Q6HR, (Reported) Cyproheptadine Hcl (Cyproheptadine Hcl), 4 MG PO BID, (Reported) Hydrocortisone Hc 2.5% Cream (Anusol-Hc 2.5% Cream), 1 APPLIC RC TID Lactulose (Lactulose*), 30 ML ORAL BID Lidocaine HCL 2% Jelly* (Lidocaine Jelly 2%*), 1 APPLIC TOPIC DAILY Lorazepam* (Ativan*), 2 MG ORAL BEDTIME, (Reported) Nifedipine* (Nifedipine Er*), 60 MG ORAL DAILY, (Reported) Omeprazole (Omeprazole), MG ORAL DAILY, (Reported) Omeprazole (Omeprazole), 40 MG ORAL DAILY, (Reported) Scheduled PRN Cyclosporine (Restasis), 1 DROP BOTH EYES EVERY 12 HOURS PRN for For Pain, ( Reported) Tramadol Hcl* (Ultram*), 50 MG ORAL Q6H PRN for For Pain, (Reported) Miscellaneous Medications Cyproheptadine Hcl (Cyproheptadine Hcl), 4 MG PO, (Reported) Lactulose (Lactulose*), 30 ML ORAL, (Reported) Lidocaine (Lidocaine), 700 MG TP, (Reported) Patient History History Provided By: Patient, Family Member, Medical Record, PMD Healthcare decision maker Resuscitation status Advanced Directive on File Past Medical/Surgical History Past Medical/Surgical History: (1) [id number] (2) Superficial thrombophlebitis (3) Sinusitis (4) Facial cellulitis (5) Blepharitis (6) Hypertensive urgency (7) Perirectal abscess (8) Perirectal burning (9) Dizziness (10) Hemorrhoids Review of Systems Review of Symptoms General ROS: no weight loss or fever Psychological ROS: no depression or mood changes, no memory loss Ophthalmic ROS: no visual changes or eye irritation ENT ROS: no nasal congestion, hearing loss, dizziness Allergy and Immunology ROS: no allergic symptoms or urticaria Hematological and Lymphatic ROS: no swollen glands, unusual bleeding or bruising Endocrine ROS: no polyuria, polydipsia, weight changes, temperature intolerance Respiratory ROS: no cough, shortness of breath, or wheezing Cardiovascular ROS: no chest pain or dyspnea on exertion Gastrointestinal ROS: denies abdominal pain, bright red blood in stool. Perirectal pain and mass Musculoskeletal ROS: no myalgias or arthralgias Neurological ROS: no TIA or stroke symptoms Dermatological ROS: no new or changing skin lesions, rashes or pruritis Physical Exam Physical Exam General appearance: alert, cooperative, no distress, appears stated age Head: Normocephalic, without obvious abnormality, atraumatic Eyes: conjunctivae/corneas clear. PERRL, EOM's intact. Fundi benign Throat: Lips, mucosa, and tongue normal. Teeth and gums normal Neck: supple, symmetrical, trachea midline, no adenopathy, thyroid: not enlarged, symmetric, no tenderness/mass/nodules, no carotid bruit and no JVD Lungs: clear to auscultation bilaterally Heart: regular rate and rhythm, S1, S2 normal, no murmur, click, rub or gallop Abdomen: soft, non-tender. Bowel sounds normal. No masses, no organomegaly Extremities: extremities normal, atraumatic, no cyanosis or edema Pulses: 2+ and symmetric Skin: Skin color, texture, turgor normal. No rashes or lesions Neurologic: Grossly normal On rectal examination patient has in the anterior midline 12:00 location perineal area a 2 cm x 2 cm raised hemorrhoidal tag potentially thrombosed hemorrhoid versus perianal infectious process that is resolving. There is inflammation and induration in the area extending towards the perineum. No drainage. Tender on examination. Unable to perform a digital rectal exam BETSY or true anal exam given patient's significant discomfort. Last 24 Hour Vital Signs Date Time Temp Pulse Resp B/P (MAP) Pulse Ox O2 Delivery O2 Flow Rate FiO2 03/05/19 11:32 97.7 86 18 125/82 98 Room Air 03/05/19 10:05 92 18 Room Air 03/05/19 10:05 97.7 92 18 122/86 99 Room Air 03/05/19 09:52 97.7 100 18 115/74 (88) 99 Room Air Laboratory Tests Test 03/05/19 10:15 White Blood Count 3.2 K/UL (4.8-10.8) L Red Blood Count 4.29 M/UL (4.20-5.40) Hemoglobin 10.6 G/DL (12.0-16.0) L Hematocrit 33.5 % (37.0-47.0) L Mean Corpuscular Volume 78 FL (80-99) L Mean Corpuscular Hemoglobin 24.7 PG (27.0-31.0) L Mean Corpuscular Hemoglobin Concent 31.7 G/DL (32.0-36.0) L Red Cell Distribution Width 14.2 % (11.6-14.8) Platelet Count 234 K/UL (150-450) Mean Platelet Volume 6.2 FL (6.5-10.1) L Neutrophils (%) (Auto) % (45.0-75.0) Lymphocytes (%) (Auto) % (20.0-45.0) Monocytes (%) (Auto) % (1.0-10.0) Eosinophils (%) (Auto) % (0.0-3.0) Basophils (%) (Auto) % (0.0-2.0) Differential Total Cells Counted 100 Neutrophils % (Manual) 52 % (45-75) Lymphocytes % (Manual) 34 % (20-45) Monocytes % (Manual) 11 % (1-10) H Eosinophils % (Manual) 3 % (0-3) Basophils % (Manual) 0 % (0-2) Band Neutrophils 0 % (0-8) Platelet Estimate Adequate Platelet Morphology Normal Sodium Level 140 MMOL/L (136-145) Potassium Level 4.6 MMOL/L (3.5-5.1) Chloride Level 104 MMOL/L (98-107) Carbon Dioxide Level 25 MMOL/L (21-32) Anion Gap 11 mmol/L (5-15) Blood Urea Nitrogen 34 mg/dL (7-18) H Creatinine 1.2 MG/DL (0.55-1.30) Estimat Glomerular Filtration Rate 54.9 mL/min (>60) Glucose Level 130 MG/DL (74-106) H Calcium Level 9.9 MG/DL (8.5-10.1) Total Bilirubin 0.4 MG/DL (0.2-1.0) Aspartate Amino Transf (AST/SGOT) 31 U/L (15-37) Alanine Aminotransferase (ALT/SGPT) 25 U/L (12-78) Alkaline Phosphatase 120 U/L (46-116) H Troponin I 0.000 ng/mL (0.000-0.056) Total Protein 9.4 G/DL (6.4-8.2) H Albumin 4.5 G/DL (3.4-5.0) Globulin 4.9 g/dL Albumin/Globulin Ratio 0.9 (1.0-2.7) L Height (Feet): 5 Height (Inches): 2.00 Weight (Pounds): 152 Medications Current Medications Medications (Trade) Dose Ordered Sig/Martha Route PRN Reason Start Time Stop Time Status Last Admin Dose Admin Meclizine HCl (Antivert) 25 mg STAT PRN ORAL for dizziness 03/05/19 10:15 04/04/19 10:14 03/05/19 10:13 Assessment/Plan Problem List: (1) Perirectal abscess Assessment & Plan: This is a 63-year-old female with long-standing history of hemorrhoids that presented with 20 days of carla-rectal perianal pain. Patient states that it is been ongoing for the past 2 to 3 weeks it has not significantly improved. No nausea vomiting fever chills. No leukocytosis but labs noted as above. Patient notes a mass and discomfort. States no drainage currently but noticed blood sometimes with her stool and bowel movements. Has been having bowel movements and is chronically constipated. On examination there is a anterior 12:00 midline in the perineal area between the anus area of induration tenderness and inflammation. Difficult to diagnose hemorrhoid first carla-a rectal abscess which is resolving. Potentially thrombosed hemorrhoid which is resolving. Potentially infected thrombosed hemorrhoid. Overall examination very difficult given patient's discomfort. Recommend admit for IV antibiotics and further management. Okay for liquid diet Stool softeners Bowel regimen I explained to the patient that with above therapy if she does not improve in the next 24 hours and is not okay to be discharged strongly recommend examination under anesthesia in the operating room for potential drainage perirectal abscess versus further evaluation and treatment if necessary. Patient expressed understanding. Thank you for allowing participation's care. Will follow with recommendations ICD Codes: K61.1 - Rectal abscess SNOMED: [id number] (2) Hemorrhoids ICD Codes: K64.9 - Unspecified hemorrhoids SNOMED: [id number] Luc Chacon Mar 05, 2019 12:01
--- NOTE | 2019-03-05 12:09 | Diagnostic Imaging Report ---
Indication: Cough Technique: One view of the chest Comparison: 10/05/2012 Findings: No acute infiltrates, effusions, or congestion. Tortuous calcified aorta. Normal heart size. Upper mediastinum unremarkable. No significant interim change Impression: No acute process.
[2019-03-05] MEDS ORDERED: Miralax 17gm pkt ORAL PRN (12:15)
[2019-03-05] MEDS ORDERED: Milk of Magnesia 30ml Ud ORAL PRN (12:15)
[2019-03-05] MEDS ORDERED: Piperacillin/Tazobactam 3.375 GM in NS 110 ML IVPB ONE (12:15)
--- NOTE | 2019-03-05 13:12 | NUR ---
ED Nurse Note: Report given to EVGENY Mulligan via telephone.
--- NOTE | 2019-03-05 13:30 | NUR ---
TRANSFER TO FLOOR: Patient transferred to [facility], room 420-1 as ordered, per Dr Leonard. Report given to EVGENY Mulligan. Pt received by charge nurse EVGENY Simeon. Belongings list signed. Transferred patient via gurney. Family (daughter) aware of transfer.
--- NOTE | 2019-03-05 15:01 | NUR ---
NURSE NOTES: Received pt at 1345, pt is alert and orient x4. pt is in RA, no SOB or acute respiratory distress noted. pt has intact iv access RAC 20G is running well. skin is intact. pt is drinking juice and tolerate well. all admission assessments and instructions done and pt verbally confirmed to understand all. pt is stable, V/S stable. all needs attended, bed is locked and is in the lowest position, call light within easy reach. will continue to monitor.
[2019-03-05] MEDS ORDERED: Omnipaque-300 100ml vial INJ PRN (17:45)
[2019-03-05] MEDS ORDERED: Milk of Magnesia 30ml Ud ORAL SCH (17:45)
[2019-03-05] MEDS ORDERED: Gastrograffin 30ml ORAL PRN (17:45)
--- NOTE | 2019-03-05 18:06 | NUR ---
NURSE NOTES: CONSENT FORM FOR CONTRAST SIGNED BY PT. PT IS AWARE TO BE NPO AFTER MID NIGHT.
[2019-03-05] MEDS: Morphine Sulfate 2mg/ml Inj(IV/IM USE ONLY) IVP PRN ×2 (18:13→20:59)
--- NOTE | 2019-03-05 19:07 | NUR ---
CASE MANAGEMENT: REVIEW 63Y/FEMALE PRESENTED TO ED FROM HOME CC: DIZZINESS SI: RECTAL ABSCESS T 97.7 HR 100 RR 18 BP 115/74 SAT 99% ROOM AIR WBC 3.2 H/H 10.6/33.5 IS: MORPHINE IV X1 MECLIZINE 25MG PO PATIENT ADMITTED TO MED/SURG UNIT 03/05/2019 DCP: PATIENT IS FROM HOME
--- NOTE | 2019-03-05 19:33 | NUR ---
HAND-OFF: Report given to RN ARISTIDES/KYLEE. Pt is awake and stable.
--- NOTE | 2019-03-05 20:00 | NUR ---
NURSE NOTES: received pt in bed. AAOx4 room air. no acute distress this time. call light within in reach. bed is the lowest position. will continue to provide plan of care.
[2019-03-05] MEDS: Docusate 100mg cap ORAL SCH (20:57)
[2019-03-06] MEDS: Morphine Sulfate 2mg/ml Inj(IV/IM USE ONLY) IVP PRN ×4 (03:54→20:32)
[2019-03-06 04:34] VITALS: BP 121/68
[2019-03-06 06:17] LABS: HEMOGLOBIN 9.9 G/DL (12.0-16.0); MEAN CORPUSCULAR VOLUME 79 FL (80-99); PLATELET COUNT 202 K/UL (150-450); RED BLOOD COUNT 3.91 M/UL (4.20-5.40); WHITE BLOOD COUNT 4.5 K/UL (4.8-10.8)
[2019-03-06 06:28] LABS: INR 0.9 (0.9-1.1)
[2019-03-06 07:01] LABS: ALANINE AMINOTRANSFERASE 21 U/L (12-78); ALBUMIN 3.7 G/DL (3.4-5.0); ALBUMIN/GLOBULIN RATIO 0.8 (1.0-2.7); ALKALINE PHOSPHATASE 100 U/L (46-116); ANION GAP 9 mmol/L (5-15); ASPARTATE AMINO TRANSFERASE 29 U/L (15-37); BILIRUBIN,TOTAL 0.5 MG/DL (0.2-1.0); BLOOD UREA NITROGEN 20 mg/dL (7-18); CARBON DIOXIDE 26 MMOL/L (21-32); CHLORIDE 105 MMOL/L (98-107); CREATININE 0.9 MG/DL (0.55-1.30); POTASSIUM 4.2 MMOL/L (3.5-5.1); SODIUM 140 MMOL/L (136-145)
--- NOTE | 2019-03-06 07:40 | NUR ---
HAND-OFF: Report given to Lynda PEPPER.
[2019-03-06 08:00] VITALS: BP 137/82
--- NOTE | 2019-03-06 08:10 | NUR ---
NURSE NOTES: pt is awake and is NPO, she will be having ab CT w/contrast this morning. Bed in lowest position and lock. Call light within reach. Will continue to follow plan of care and monitor pt.
[2019-03-06] MEDS: Docusate 100mg cap ORAL SCH ×2 (09:26→20:31)
[2019-03-06] MEDS: Piperacillin/Tazobactam 3.375 GM in NS 110 ML IVPB SCH ×2 (09:28→18:28)
[2019-03-06 12:00] VITALS: BP 135/91
--- NOTE | 2019-03-06 13:28 | Diagnostic Imaging Report ---
Clinical Indication: Perianal pain, palpable mass history of GI bleed Technique: No oral contrast utilized, per emergency room physician request IV administration nonionic contrast. Venous phase spiral acquisition obtained through the abdomen and pelvis. Multiplanar reconstructions were generated. Total dose length product 760 mGycm. CTDIvol(s) 13 mGy. Dose reduction achieved using automated exposure control Comparison: 05/30/2009 Findings: The perineum appears unremarkable and unchanged from the prior study. No perianal abnormality demonstrated. A single diverticulum is seen in the ascending colon, not evident previously. The appendix is normal. No small bowel distention or small bowel wall thickening. The distal esophagus, stomach, duodenum are unremarkable. No free or loculated intraperitoneal gas or fluid is evident. The gallbladder is distended, otherwise unremarkable, no definite stones.. The liver, bile ducts, pancreas, spleen, adrenals, left kidney are unremarkable. The right kidney demonstrates subcentimeter low-attenuation lesions which are too small to characterize. There are prominent but not frankly enlarged retroperitoneal nodes, also demonstrated previously and unchanged. The uterus and adnexal structures are unremarkable. The bladder is unremarkable. The included lung bases demonstrate minimal scarring or atelectasis on the left, are otherwise clear. The bones demonstrate degenerative changes of the lumbar spine Impression: No definite perineal abnormality or other findings to explain stated clinical history of perianal pain or palpable mass Colonic diverticulosis. No evidence of diverticulitis Incidental findings as noted, including degenerative spondylosis, left basilar atelectasis or scarring, probable small right renal cysts The CT scanner at [facility] is accredited by the [employer] and the scans are performed using protocols designed to limit radiation exposure to as low as reasonably achievable to attain images of sufficient resolution adequate for diagnostic evaluation.
--- NOTE | 2019-03-06 15:30 | History and Physical Report ---
DATE OF ADMISSION: 03/05/2019 CHIEF COMPLAINT: Severe rectal pain, rule out perirectal abscess. HISTORY OF PRESENT ILLNESS: The patient is a pleasant 63-year-old female. She has multiple medical problems including history of Sjogren syndrome, IBS, hypertension, and anemia. She presented with complaints of 20 days of severe rectal pain. According to the patient, she developed pain in the rectum several weeks ago. She saw a specialist who ordered some type of a topical cream, but she has had worsening severe pain. She has had dizziness and unsteadiness when walking as well as some subjective fevers. She presented to the emergency room. On evaluation there, the patient was afebrile. Her white count was 3. Troponin was negative. She has been started on intravenous fluids and IV antibiotics for possible perirectal abscess. She is now admitted for further evaluation and care. PAST MEDICAL HISTORY: As above. PAST SURGICAL HISTORY: Includes tubal ligation and bone marrow biopsy. CURRENT MEDICATIONS: Reconciled and reviewed. ALLERGIES: Include ibuprofen, Benadryl, and tomatoes. FAMILY HISTORY: History of CHF, diabetes, and lung cancer. SOCIAL HISTORY: There is no known history of tobacco, ethanol, or drugs. REVIEW OF SYSTEMS: GENERAL: Positive for fevers, but no chills. HEENT: No headaches or visual changes. Positive for dizziness. CARDIOPULMONARY: No chest pain or shortness of breath. GASTROINTESTINAL: No nausea or vomiting. Positive for rectal pain. No bleeding. No diarrhea. GENITOURINARY: No urgency or frequency. MUSCULOSKELETAL: No joint pain or swelling. NEUROLOGIC: No evidence of seizures. PHYSICAL EXAMINATION: VITAL SIGNS: Temperature 97.5, pulse 76, respirations 18, and blood pressure 121/68. GENERAL: The patient is well developed and in no apparent distress. HEART: Regular rate and rhythm. LUNGS: Clear. ABDOMEN: Soft, nontender, and nondistended. EXTREMITIES: No clubbing, cyanosis, or edema. LABORATORY DATA: Labs, sodium 140, potassium 4.6, BUN 34, and creatinine 1.2. White count 3, hemoglobin 10, hematocrit 33, and platelets of 234,000. EKG showed sinus rhythm. ASSESSMENT: This is a pleasant female admitted with complaints of dizziness, severe rectal pain, and dehydration. PROBLEM LIST: 1. Dizziness. 2. Dehydration. 3. Azotemia. 4. Rectal pain, rule out perirectal abscess. 5. History of hemorrhoids. 6. History of Sjogren syndrome. 7. Hypertension. 8. Anemia. PLAN: IV hydration. Empiric antibiotic therapy. Follow-up CAT scan. Surgical and Cardiology evaluations will be obtained. Monitor the patient's orthostatics. Jeremy Leonard M.D. DR: Pavan JOB#: [id number] CC:
[2019-03-06 16:00] VITALS: BP 132/91
--- NOTE | 2019-03-06 16:50 | Surgery Progress Note ---
Surgery Progress Note Subjective Additional Comments no acute events states she feels mildly better today just some perirectal "burning" afebrile, HD stable had CT CT without acute finding Objective Last 24 Hour Vital Signs Date Time Temp Pulse Resp B/P (MAP) Pulse Ox O2 Delivery O2 Flow Rate FiO2 03/06/19 12:00 98.4 74 17 135/91 (106) 100 03/06/19 09:00 Room Air 03/06/19 08:00 98.6 80 17 137/82 (100) 100 03/06/19 04:34 97.5 76 18 121/68 (85) 100 03/05/19 23:43 97.6 76 18 106/58 (74) 100 03/05/19 21:03 Room Air 03/05/19 20:00 97.7 73 20 115/76 (89) 97 03/05/19 18:43 98.2 I&O Intake and Output 03/05/19 03/06/19 19:00 07:00 Intake Total 1630 ml 1035 ml Balance 1630 ml 1035 ml Intake Oral 1220 ml IV Total 410 ml 735 ml Other 300 ml # Voids 12 Cardiovascular: RSR Respiratory: clear Abdomen: soft, flat, non-tender, present bowel sounds Extremities: no edema, no tenderness, no cyanosis Laboratory Tests Test 03/06/19 05:40 White Blood Count 4.5 K/UL (4.8-10.8) L Red Blood Count 3.91 M/UL (4.20-5.40) L Hemoglobin 9.9 G/DL (12.0-16.0) L Hematocrit 31.0 % (37.0-47.0) L Mean Corpuscular Volume 79 FL (80-99) L Mean Corpuscular Hemoglobin 25.3 PG (27.0-31.0) L Mean Corpuscular Hemoglobin Concent 31.8 G/DL (32.0-36.0) L Red Cell Distribution Width 14.0 % (11.6-14.8) Platelet Count 202 K/UL (150-450) Mean Platelet Volume 6.1 FL (6.5-10.1) L Neutrophils (%) (Auto) % (45.0-75.0) Lymphocytes (%) (Auto) % (20.0-45.0) Monocytes (%) (Auto) % (1.0-10.0) Eosinophils (%) (Auto) % (0.0-3.0) Basophils (%) (Auto) % (0.0-2.0) Prothrombin Time 10.1 SEC (9.30-11.50) Prothromb Time International Ratio 0.9 (0.9-1.1) Activated Partial Thromboplast Time 26 SEC (23-33) Sodium Level 140 MMOL/L (136-145) Potassium Level 4.2 MMOL/L (3.5-5.1) Chloride Level 105 MMOL/L (98-107) Carbon Dioxide Level 26 MMOL/L (21-32) Anion Gap 9 mmol/L (5-15) Blood Urea Nitrogen 20 mg/dL (7-18) H Creatinine 0.9 MG/DL (0.55-1.30) Estimat Glomerular Filtration Rate > 60 mL/min (>60) Glucose Level 100 MG/DL (74-106) Calcium Level 9.0 MG/DL (8.5-10.1) Total Bilirubin 0.5 MG/DL (0.2-1.0) Aspartate Amino Transf (AST/SGOT) 29 U/L (15-37) Alanine Aminotransferase (ALT/SGPT) 21 U/L (12-78) Alkaline Phosphatase 100 U/L (46-116) Total Protein 8.3 G/DL (6.4-8.2) H Albumin 3.7 G/DL (3.4-5.0) Globulin 4.6 g/dL Albumin/Globulin Ratio 0.8 (1.0-2.7) L Plan Problems: (1) Perirectal abscess Assessment & Plan: This is a 63-year-old female with long-standing history of hemorrhoids that presented with 20 days of carla-rectal perianal pain. Patient states that it is been ongoing for the past 2 to 3 weeks it has not significantly improved. No nausea vomiting fever chills. No leukocytosis but labs noted as above. Patient notes a mass and discomfort. States no drainage currently but noticed blood sometimes with her stool and bowel movements. Has been having bowel movements and is chronically constipated. On examination there is a anterior 12:00 midline in the perineal area between the anus area of induration tenderness and inflammation. Difficult to diagnose hemorrhoid first carla-a rectal abscess which is resolving. Potentially thrombosed hemorrhoid which is resolving. Potentially infected thrombosed hemorrhoid. Overall examination very difficult given patient's discomfort. Recommend admit for IV antibiotics and further management. Okay for liquid diet Stool softeners Bowel regimen I explained to the patient that with above therapy if she does not improve in the next 24 hours and is not okay to be discharged strongly recommend examination under anesthesia in the operating room for potential drainage perirectal abscess versus further evaluation and treatment if necessary. Patient expressed understanding. CT noted and okay states somewhat getter today no n/v/f/c pending BM discussed going to OR for EUA. states she is not ready as she feels maybe getting better suppository ordered Thank you for allowing participation's care. Will follow with recommendations (2) Hemorrhoids Luc Chacon Mar 06, 2019 16:50
[2019-03-06] MEDS: Hydrocortisone 25mg supp RECTAL SCH (18:00)
--- NOTE | 2019-03-06 18:47 | NUR ---
NURSE NOTES: pt refused suppository she said she didn't want it anymore, she just wanted lidocaine cream.
--- NOTE | 2019-03-06 19:35 | NUR ---
HAND-OFF: Report given to Verena/chirag, pt in stable condition.
[2019-03-06 19:56] VITALS: BP 141/88
[2019-03-06] MEDS: Mylanta II UD 30ml ORAL PRN (20:53)
[2019-03-07] VITALS (7 sets, daily range): BP systolic 92–192; BP diastolic 56–122
[2019-03-07] MEDS: Piperacillin/Tazobactam 3.375 GM in NS 110 ML IVPB SCH ×3 (00:27→17:25)
--- NOTE | 2019-03-07 01:00 | Progress Note ---
DATE: 03/06/2019 CARDIOLOGY PROGRESS NOTE SUBJECTIVE: The patient feels minimally better today. She still has perirectal pain. CT scan was non-remarkable. No dizziness at rest. OBJECTIVE: VITAL SIGNS: Blood pressure 135/91, pulse 74, respirations 17, and afebrile. LUNGS: Clear. CARDIAC: Regular. Normal S1, S2. A 1/6 systolic murmur at apex. ABDOMEN: Soft. EXTREMITIES: No edema. LABORATORY DATA: Potassium 4.2, BUN 20, and creatinine 0.9. White count 4.5 and hemoglobin 9.9. IMPRESSION: 1. Near syncope. 2. Orthostatic symptoms. 3. Hypovolemia and dehydration, improved. 4. Prerenal azotemia, improved. 5. Heart murmur does not appear to be of hemodynamic significance. 6. Sjogren syndrome. PLAN: 1. Maintain adequate hydration. 2. Check echocardiogram. 3. Adjust IV fluids based on clinical parameters. Scottie Flannery M.D. DR: YOLANDA JOB#: [id number] CC:
[2019-03-07 06:20] LABS: HEMATOCRIT 32.9 % (37.0-47.0); HEMOGLOBIN 10.3 G/DL (12.0-16.0); MEAN CORPUSCULAR VOLUME 80 FL (80-99); PLATELET COUNT 202 K/UL (150-450); RED BLOOD COUNT 4.14 M/UL (4.20-5.40); RED CELL DISTRIBUTION WIDTH 14.1 % (11.6-14.8); WHITE BLOOD COUNT 3.2 K/UL (4.8-10.8)
[2019-03-07 06:29] LABS: ANION GAP 9 mmol/L (5-15); BLOOD UREA NITROGEN 10 mg/dL (7-18); CALCIUM 9.4 MG/DL (8.5-10.1); CARBON DIOXIDE 28 MMOL/L (21-32); CHLORIDE 102 MMOL/L (98-107); SODIUM 139 MMOL/L (136-145)
--- NOTE | 2019-03-07 07:31 | NUR ---
HAND-OFF: Report given to Kimber PEPPER.
--- NOTE | 2019-03-07 07:36 | General Progress Note ---
Assessment/Plan Problem List: (1) Syncope ICD Codes: R55 - Syncope and collapse SNOMED: 796506064 (2) Perirectal abscess ICD Codes: K61.1 - Rectal abscess SNOMED: 15630891 (3) Hemorrhoids ICD Codes: K64.9 - Unspecified hemorrhoids SNOMED: 14170968 Status: stable, progressing Assessment/Plan: bowel regime cont iv abx surgery follow up for exam under anesthesia Subjective ROS Limited/Unobtainable: No Constitutional: Reports: malaise, weakness HEENT: Reports: no symptoms Cardiovascular: Reports: no symptoms Respiratory: Reports: no symptoms Gastrointestinal/Abdominal: Reports: no symptoms Genitourinary: Reports: no symptoms Neurologic/Psychiatric: Reports: no symptoms Endocrine: Reports: no symptoms Hematologic/Lymphatic: Reports: no symptoms Allergies: Coded Allergies: PEANUT (Verified Allergy, Severe, Anaphylaxis, 09/09/18) DIPHENHYDRAMINE (Verified Allergy, Mild, Itching, 09/09/18) TOMATO (Verified Allergy, Unknown, Itching, 09/09/18) All Systems: reviewed and negative except above Subjective severe rectal pain. per pt not improved. agrees to exam under anesthesia if needed. Objective Last 24 Hour Vital Signs Date Time Temp Pulse Resp B/P (MAP) Pulse Ox O2 Delivery O2 Flow Rate FiO2 03/07/19 04:05 98.2 74 20 138/76 (96) 98 03/07/19 00:06 97.7 70 18 137/80 (99) 100 03/06/19 21:00 Room Air 03/06/19 19:56 97.6 76 20 141/88 (105) 100 03/06/19 16:00 98.2 74 17 132/91 (105) 99 03/06/19 12:00 98.4 74 17 135/91 (106) 100 03/06/19 09:00 Room Air 03/06/19 08:00 98.6 80 17 137/82 (100) 100 Intake and Output 03/06/19 03/07/19 19:00 07:00 Intake Total 400 ml 770.0 ml Balance 400 ml 770.0 ml Intake Oral 400 ml IV Total 370.0 ml Other 400 ml # Voids 2 10 Laboratory Tests 03/07/19 06:03: White Blood Count 3.2L, Red Blood Count 4.14L, Hemoglobin 10.3L, Hematocrit 32.9L, Mean Corpuscular Volume 80, Mean Corpuscular Hemoglobin 25.0L, Mean Corpuscular Hemoglobin Concent 31.4L, Red Cell Distribution Width 14.1, Platelet Count 202, Mean Platelet Volume 5.9L, Neutrophils (%) (Auto) , Lymphocytes (%) (Auto) , Monocytes (%) (Auto) , Eosinophils (%) (Auto) , Basophils (%) (Auto) , Sodium Level 139, Potassium Level 4.0, Chloride Level 102 , Carbon Dioxide Level 28, Anion Gap 9, Blood Urea Nitrogen 10, Creatinine 1.0, Estimat Glomerular Filtration Rate > 60, Glucose Level 97, Calcium Level 9.4 Height (Feet): 5 Height (Inches): 2.00 Weight (Pounds): 152 General Appearance: WD/WN, alert Neck: supple Cardiovascular: regular rhythm Respiratory/Chest: lungs clear Abdomen: normal bowel sounds, non tender, soft, no organomegaly Edema: no edema noted Arm (L), no edema noted Arm (R), no edema noted Leg (L), no edema noted Leg (R), no edema noted Pedal (L), no edema noted Pedal (R), no edema noted Generalized Neurologic: no motor/sensory deficits, alert, responsive Jeremy Leonard MD Mar 07, 2019 07:36
--- NOTE | 2019-03-07 07:40 | NUR ---
NURSE NOTES: Patient received in stable condition, eating breakfast in bed. Alert and orientedx4, breathing unlabored on room air. Denies pain or SOB at this time. Patient on a full liquid diet currently. IV site on right arm patent and intact. Patient is ambulatory. bed locked in lowest position, call light placed within reach. Will continue to monitor.
[2019-03-07] MEDS: Docusate 100mg cap ORAL SCH ×2 (08:47→20:34)
[2019-03-07] MEDS: Hydrocortisone 25mg supp RECTAL SCH ×2 (09:00→17:25)
[2019-03-07] MEDS: Morphine Sulfate 2mg/ml Inj(IV/IM USE ONLY) IVP PRN (09:03)
[2019-03-07] MEDS: cloNIDine 0.2mg Tab ORAL SCH ×2 (11:26→18:00)
[2019-03-07] MEDS ORDERED: NIFEdipine 10mg cap ORAL SCH (12:00)
--- NOTE | 2019-03-07 14:31 | NUR ---
CASE MANAGEMENT:REVIEW 03/07/19 SI: PERIRECTAL PAIN. PERIRECTAL ABSCESS 98.2 75 17 192/117 99% ON RA H/H-10.3/32.9 IS: IV ZOSYN Q8HRS IVF@75/HR PROCARDIA XL PO QD CLONIDINE PO Q6HRS ANUSOL MT BID : MED/SURG STATUS 4 EAST DCP; FROM HOME
--- NOTE | 2019-03-07 19:29 | NUR ---
HAND-OFF: Report given to Adelia PEPPER.
--- NOTE | 2019-03-07 19:36 | NUR ---
NURSE NOTES: Patient in bed asleep at this time. On room air with no signs of distress or SOB. IV site intact and patent. Full liquid diet. Bed locked and in lowest position. Call light in easy reach. Will continue to monitor the patient.
--- NOTE | 2019-03-07 22:38 | Surgery Progress Note ---
Surgery Progress Note Subjective Additional Comments pain a little better with lidocaine cream suppository no help still burning feeling Objective Last 24 Hour Vital Signs Date Time Temp Pulse Resp B/P (MAP) Pulse Ox O2 Delivery O2 Flow Rate FiO2 03/07/19 20:07 Room Air 03/07/19 20:00 97.2 65 17 99/57 (71) 100 03/07/19 18:38 70 105/71 (82) 03/07/19 18:00 96/58 03/07/19 16:00 98.6 79 17 96/58 (71) 100 03/07/19 14:18 75 192/117 03/07/19 12:00 98.2 75 17 192/117 (142) 99 03/07/19 11:26 157/122 03/07/19 09:00 Room Air 03/07/19 08:00 98.2 85 21 157/122 (134) 100 03/07/19 04:05 98.2 74 20 138/76 (96) 98 03/07/19 00:06 97.7 70 18 137/80 (99) 100 I&O Intake and Output 03/06/19 03/07/19 19:00 07:00 Intake Total 400 ml 770.0 ml Balance 400 ml 770.0 ml Intake Oral 400 ml IV Total 370.0 ml Other 400 ml # Voids 2 10 Cardiovascular: RSR Respiratory: clear Abdomen: soft, flat, non-tender, present bowel sounds Extremities: no edema, no tenderness, no cyanosis Laboratory Tests Test 03/07/19 06:03 White Blood Count 3.2 K/UL (4.8-10.8) L Red Blood Count 4.14 M/UL (4.20-5.40) L Hemoglobin 10.3 G/DL (12.0-16.0) L Hematocrit 32.9 % (37.0-47.0) L Mean Corpuscular Volume 80 FL (80-99) Mean Corpuscular Hemoglobin 25.0 PG (27.0-31.0) L Mean Corpuscular Hemoglobin Concent 31.4 G/DL (32.0-36.0) L Red Cell Distribution Width 14.1 % (11.6-14.8) Platelet Count 202 K/UL (150-450) Mean Platelet Volume 5.9 FL (6.5-10.1) L Neutrophils (%) (Auto) % (45.0-75.0) Lymphocytes (%) (Auto) % (20.0-45.0) Monocytes (%) (Auto) % (1.0-10.0) Eosinophils (%) (Auto) % (0.0-3.0) Basophils (%) (Auto) % (0.0-2.0) Sodium Level 139 MMOL/L (136-145) Potassium Level 4.0 MMOL/L (3.5-5.1) Chloride Level 102 MMOL/L (98-107) Carbon Dioxide Level 28 MMOL/L (21-32) Anion Gap 9 mmol/L (5-15) Blood Urea Nitrogen 10 mg/dL (7-18) Creatinine 1.0 MG/DL (0.55-1.30) Estimat Glomerular Filtration Rate > 60 mL/min (>60) Glucose Level 97 MG/DL (74-106) Calcium Level 9.4 MG/DL (8.5-10.1) Plan Problems: (1) Perirectal abscess Assessment & Plan: This is a 63-year-old female with long-standing history of hemorrhoids that presented with 20 days of carla-rectal perianal pain. Patient states that it is been ongoing for the past 2 to 3 weeks it has not significantly improved. No nausea vomiting fever chills. No leukocytosis but labs noted as above. Patient notes a mass and discomfort. States no drainage currently but noticed blood sometimes with her stool and bowel movements. Has been having bowel movements and is chronically constipated. On examination there is a anterior 12:00 midline in the perineal area between the anus area of induration tenderness and inflammation. Difficult to diagnose hemorrhoid first carla-a rectal abscess which is resolving. Potentially thrombosed hemorrhoid which is resolving. Potentially infected thrombosed hemorrhoid. Overall examination very difficult given patient's discomfort. Recommend admit for IV antibiotics and further management. Okay for liquid diet Stool softeners Bowel regimen I explained to the patient that with above therapy if she does not improve in the next 24 hours and is not okay to be discharged strongly recommend examination under anesthesia in the operating room for potential drainage perirectal abscess versus further evaluation and treatment if necessary. Patient expressed understanding. CT noted and okay states somewhat getter today no n/v/f/c discussed going to OR for EUA. states she is not ready as she feels maybe getting better EUA sunday Thank you for allowing participation's care. Will follow with recommendations (2) Hemorrhoids Luc Chacon Mar 07, 2019 22:38
[2019-03-08] VITALS: BP_SYST 102; BP_SYST 126; BP_DIAS 58; BP_DIAS 60
[2019-03-08] MEDS: cloNIDine 0.2mg Tab ORAL SCH ×4 (00:42→17:18)
[2019-03-08] MEDS: Piperacillin/Tazobactam 3.375 GM in NS 110 ML IVPB SCH ×3 (01:02→17:17)
[2019-03-08 04:00] VITALS: BP 115/64
--- NOTE | 2019-03-08 06:59 | NUR ---
HAND-OFF: Report given to EVGENY Quiroga.
--- NOTE | 2019-03-08 07:46 | NUR ---
NURSE NOTES: Patient received in stable condition, ambulating in room. Alert and orientedx4, denies pain or SOB. Denies dizziness. Call light placed within reach, needs attended to. Will continue to monitor.
[2019-03-08 08:00] VITALS: BP 130/78
[2019-03-08] MEDS: Docusate 100mg cap ORAL SCH ×2 (08:39→20:45)
[2019-03-08] MEDS: LORazepam 1mg tab ORAL PRN ×2 (08:46→20:47)
[2019-03-08] MEDS: Hydrocortisone 25mg supp RECTAL SCH ×2 (08:50→17:33)
--- NOTE | 2019-03-08 10:07 | General Progress Note ---
Assessment/Plan Problem List: (1) Syncope ICD Codes: R55 - Syncope and collapse SNOMED: 689803533 (2) Perirectal abscess ICD Codes: K61.1 - Rectal abscess SNOMED: 29466153 (3) Hemorrhoids ICD Codes: K64.9 - Unspecified hemorrhoids SNOMED: 99058141 Status: stable, progressing Assessment/Plan: bowel regime cont iv abx surgery follow up for exam under anesthesia possibly on sunday Subjective ROS Limited/Unobtainable: No Constitutional: Reports: weakness HEENT: Reports: no symptoms Cardiovascular: Reports: no symptoms Respiratory: Reports: no symptoms Gastrointestinal/Abdominal: Reports: no symptoms Genitourinary: Reports: no symptoms Neurologic/Psychiatric: Reports: no symptoms Endocrine: Reports: no symptoms Hematologic/Lymphatic: Reports: no symptoms Allergies: Coded Allergies: PEANUT (Verified Allergy, Severe, Anaphylaxis, 09/09/18) DIPHENHYDRAMINE (Verified Allergy, Mild, Itching, 09/09/18) TOMATO (Verified Allergy, Unknown, Itching, 09/09/18) All Systems: reviewed and negative except above Subjective severe rectal pain. per pt not improved. wants regular diet. surgery noted. Objective Last 24 Hour Vital Signs Date Time Temp Pulse Resp B/P (MAP) Pulse Ox O2 Delivery O2 Flow Rate FiO2 03/08/19 08:39 74 130/78 03/08/19 08:00 98.4 74 19 130/78 (95) 99 03/08/19 05:37 115/64 03/08/19 04:00 98.2 68 20 115/64 (81) 100 03/08/19 00:42 102/60 03/08/19 00:00 97.8 56 18 102/60 (74) 100 03/07/19 20:07 Room Air 03/07/19 20:00 97.2 65 17 99/57 (71) 100 03/07/19 18:38 70 105/71 (82) 03/07/19 18:00 96/58 03/07/19 16:00 98.6 79 17 96/58 (71) 100 03/07/19 14:18 75 192/117 03/07/19 12:00 98.2 75 17 192/117 (142) 99 03/07/19 11:26 157/122 Intake and Output 03/07/19 03/08/19 18:59 06:59 Intake Total 600 ml 1140 ml Balance 600 ml 1140 ml Intake Oral 600 ml 240 ml IV Total 900 ml # Voids 8 3 Height (Feet): 5 Height (Inches): 2.00 Weight (Pounds): 152 General Appearance: WD/WN, alert Cardiovascular: regular rhythm Respiratory/Chest: lungs clear, normal breath sounds Abdomen: normal bowel sounds, non tender, soft, no organomegaly Edema: no edema noted Arm (L), no edema noted Arm (R), no edema noted Leg (L), no edema noted Leg (R), no edema noted Pedal (L), no edema noted Pedal (R), no edema noted 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
[2019-03-08] MEDS: Morphine Sulfate 2mg/ml Inj(IV/IM USE ONLY) IVP PRN ×2 (10:16→17:48)
[2019-03-08 12:00] VITALS: BP 147/85
--- NOTE | 2019-03-08 14:42 | Surgery Progress Note ---
Surgery Progress Note Subjective Additional Comments tolerating diet states she wants to have a BM soon to see how its going to feel still burning feeling Objective Last 24 Hour Vital Signs Date Time Temp Pulse Resp B/P (MAP) Pulse Ox O2 Delivery O2 Flow Rate FiO2 03/08/19 12:41 147/85 03/08/19 12:00 98.2 85 17 147/85 (105) 99 03/08/19 09:00 Room Air 03/08/19 08:39 74 130/78 03/08/19 08:00 98.4 74 19 130/78 (95) 99 03/08/19 05:37 115/64 03/08/19 04:00 98.2 68 20 115/64 (81) 100 03/08/19 00:42 102/60 03/08/19 00:00 97.8 56 18 102/60 (74) 100 03/07/19 20:07 Room Air 03/07/19 20:00 97.2 65 17 99/57 (71) 100 03/07/19 18:38 70 105/71 (82) 03/07/19 18:00 96/58 03/07/19 16:00 98.6 79 17 96/58 (71) 100 I&O Intake and Output 03/07/19 03/08/19 18:59 06:59 Intake Total 600 ml 1140 ml Balance 600 ml 1140 ml Intake Oral 600 ml 240 ml IV Total 900 ml # Voids 8 3 Cardiovascular: RSR Respiratory: clear Abdomen: soft, flat, non-tender, present bowel sounds, non-distended Extremities: no edema, no tenderness, no cyanosis Plan Problems: (1) Perirectal abscess Assessment & Plan: This is a 63-year-old female with long-standing history of hemorrhoids that presented with 20 days of carla-rectal perianal pain. Patient states that it is been ongoing for the past 2 to 3 weeks it has not significantly improved. No nausea vomiting fever chills. No leukocytosis but labs noted as above. Patient notes a mass and discomfort. States no drainage currently but noticed blood sometimes with her stool and bowel movements. Has been having bowel movements and is chronically constipated. On examination there is a anterior 12:00 midline in the perineal area between the anus area of induration tenderness and inflammation. Difficult to diagnose hemorrhoid first carla-a rectal abscess which is resolving. Potentially thrombosed hemorrhoid which is resolving. Potentially infected thrombosed hemorrhoid. Overall examination very difficult given patient's discomfort. Recommend admit for IV antibiotics and further management. Okay for liquid diet Stool softeners Bowel regimen I explained to the patient that with above therapy if she does not improve in the next 24 hours and is not okay to be discharged strongly recommend examination under anesthesia in the operating room for potential drainage perirectal abscess versus further evaluation and treatment if necessary. Patient expressed understanding. CT noted and okay states somewhat getter today no n/v/f/c discussed going to OR for EUA. states she is not ready as she feels maybe getting better EUA sunday Thank you for allowing participation's care. Will follow with recommendations (2) Hemorrhoids Luc Chacon Mar 08, 2019 14:42
--- NOTE | 2019-03-08 15:38 | Cardiology Report ---
APPROVED REPORT EKG Measurement Heart [id number] Normal sinus rhythm Possible Left atrial enlargement Borderline ECG
[2019-03-08 16:00] VITALS: BP 139/87
--- NOTE | 2019-03-08 19:14 | NUR ---
NURSE NOTES: Patient in bed asleep at this time. On room air with no signs of distress or SOB. IV site intact and patent. Bed locked and in lowest position. Call light in easy reach. Will continue to monitor the patient.
--- NOTE | 2019-03-08 19:21 | NUR ---
HAND-OFF: Report given to Adelia PEPPER.
[2019-03-08 20:00] VITALS: BP 103/60
--- NOTE | 2019-03-08 21:15 | NUR ---
NURSE NOTES: Patient stating stool softener and prune juice ineffective. Patient repeatedly requesting suppository. Administered PRN Dulcolax suppository as ordered. aware.
--- NOTE | 2019-03-08 22:30 | Progress Note ---
DATE: 03/08/2019 CARDIOLOGY PROGRESS NOTE SUBJECTIVE: The patient is constipated, has pain and insisting on a suppository. No dizziness. Vitals stable. Last night 99/57, but no low blood pressure episodes today. Remains hemodynamically stable. Bowel regimen and diet advanced. INCOMPLETE DICTATION Scottie Flannery M.D. DR: MIRIAM JOB#: [id number] CC:
--- NOTE | 2019-03-08 23:45 | Consultation ---
DATE OF CONSULTATION: 03/05/2019 CARDIOLOGY CONSULTATION CONSULTING PHYSICIAN: Scottie Flannery M.D. REFERRING PHYSICIAN: Jeremy Leonard M.D. REASON FOR CONSULTATION: Near syncope. HISTORY OF PRESENT ILLNESS: This is a 63-year-old female with multiple medical problems, who has been having nausea, abdominal and rectal pain for several days. She has been dizzy and had some spinning sensation during the last 2 days. She has not had any episodes where she passed out, but has felt lightheaded. She also has had intermittent rectal bleeding that she relates to hemorrhoids. PAST MEDICAL HISTORY: Includes hypertension, gastroesophageal reflux, Sjogren syndrome, Raynaud syndrome, osteoarthritis, and history of heart murmur. No history of endocarditis. ALLERGIES: Include tomato, peanut, and diphenhydramine. MEDICATIONS: Reviewed and reconciled. SOCIAL HISTORY: Denies smoking, alcohol, or substance abuse. REVIEW OF SYSTEMS: A 10-point review of systems performed. All systems negative other than noted above. PHYSICAL EXAMINATION: VITAL SIGNS: Blood pressure 115/74, heart rate 100, respiratory rate 18, and afebrile. HEENT: Mucous membranes dry. NECK: Supple. LUNGS: Clear. CARDIAC: Regular. Normal S1 and S2 with no appreciated murmur. EXTREMITIES: No edema. LABORATORY AND DIAGNOSTIC DATA: Labs reviewed. EKG revealed sinus rhythm with possible left atrial enlargement. IMPRESSION: 1. Rectal pain and bleeding. 2. Hypovolemia and dehydration with associated near syncope. 3. History of Sjogren's and Raynaud's. 4. History of hypertension. 5. History of heart murmur. PLAN: 1. Hydration. 2. Antimicrobials. 3. Surgical evaluation. 4. Echocardiogram. Scottie Flannery M.D. : Rogelio JOB#: [id number] CC:
[2019-03-09] VITALS (7 sets, daily range): BP systolic 110–168; BP diastolic 62–104
--- NOTE | 2019-03-09 00:15 | NUR ---
NURSE NOTES: Patient reports having a bowel movement after suppository. Denied any pain. Will continue to monitor.
--- NOTE | 2019-03-09 00:30 | Progress Note ---
DATE: 03/07/2019 CARDIOLOGY PROGRESS NOTE Late entry, 03/07/2019. SUBJECTIVE: The patient still has constipation and rectal pain. OBJECTIVE: VITAL SIGNS: Blood pressure 138/76, pulse 74, and respiratory rate 20. LUNGS: Clear. CARDIAC: Regular. Normal S1 and S2. ABDOMEN: Soft. EXTREMITIES: No edema. IMPRESSION: 1. Hypovolemia and dehydration, resolved 2. Syncope secondary to above. 3. Perirectal abscess versus hemorrhoid and associated pain. PLAN: 1. Maintain adequate hydration. 2. Bowel regimen. 3. Surgical followup. Scottie Flannery M.D. DR: DISHA JOB#: [id number] CC:
[2019-03-09] MEDS: cloNIDine 0.2mg Tab ORAL SCH ×4 (00:48→17:08)
[2019-03-09] MEDS: Piperacillin/Tazobactam 3.375 GM in NS 110 ML IVPB SCH ×3 (01:14→17:07)
--- NOTE | 2019-03-09 07:30 | NUR ---
NURSE NOTES: Received pt from DEV PEPPER. Pt is alert and orient x4. pt is in RA, no SOB or acute respiratory distress noted. pt has intact iv access RH 22G is running well. all needs attended, bed is locked and is in the lowest position, call light within easy reach. will continue to monitor.
--- NOTE | 2019-03-09 07:41 | NUR ---
HAND-OFF: Report given to EVGENY Mulligan.
[2019-03-09] MEDS: Docusate 100mg cap ORAL SCH ×2 (08:57→20:53)
[2019-03-09] MEDS: Hydrocortisone 25mg supp RECTAL SCH ×2 (08:57→17:08)
--- NOTE | 2019-03-09 09:14 | General Progress Note ---
Assessment/Plan Problem List: (1) Syncope ICD Codes: R55 - Syncope and collapse SNOMED: 027446422 (2) Perirectal abscess ICD Codes: K61.1 - Rectal abscess SNOMED: 64983863 (3) Hemorrhoids ICD Codes: K64.9 - Unspecified hemorrhoids SNOMED: 60237520 Status: stable, progressing Assessment/Plan: bowel regime cont iv abx dc ivf prn bp meds added surgery follow up for exam under anesthesia possibly tomorrow Subjective ROS Limited/Unobtainable: No Constitutional: Reports: malaise, weakness HEENT: Reports: no symptoms Cardiovascular: Reports: no symptoms Respiratory: Reports: no symptoms Gastrointestinal/Abdominal: Reports: no symptoms Genitourinary: Reports: no symptoms Neurologic/Psychiatric: Reports: no symptoms Endocrine: Reports: no symptoms Hematologic/Lymphatic: Reports: no symptoms Allergies: Coded Allergies: PEANUT (Verified Allergy, Severe, Anaphylaxis, 09/09/18) DIPHENHYDRAMINE (Verified Allergy, Mild, Itching, 09/09/18) TOMATO (Verified Allergy, Unknown, Itching, 09/09/18) Subjective severe rectal pain. per pt not improved. eating regular diet. BP trending up- possible exacerbated by pain. Objective Last 24 Hour Vital Signs Date Time Temp Pulse Resp B/P (MAP) Pulse Ox O2 Delivery O2 Flow Rate FiO2 03/09/19 08:58 60 168/104 03/09/19 08:00 97.5 60 19 168/104 (125) 96 03/09/19 06:01 150/79 03/09/19 04:00 97.0 56 17 150/79 (102) 100 03/09/19 00:48 110/62 03/09/19 00:00 97.1 80 18 110/62 (78) 99 03/08/19 20:00 97.9 74 20 103/60 (74) 98 03/08/19 19:43 Room Air 03/08/19 17:18 139/87 03/08/19 16:00 98.1 86 17 139/87 (104) 98 03/08/19 12:41 147/85 03/08/19 12:00 98.2 85 17 147/85 (105) 99 Intake and Output 03/08/19 03/09/19 19:00 07:00 Intake Total 315 ml Output Total 1 ml Balance 314 ml Intake Oral 240 ml IV Total 75 ml Output Stool Total 1 ml # Voids 3 Height (Feet): 5 Height (Inches): 2.00 Weight (Pounds): 152 Objective General Appearance: WD/WN, alert Cardiovascular: regular rhythm Respiratory/Chest: lungs clear, normal breath sounds Abdomen: normal bowel sounds, non tender, soft, no organomegaly Edema: no edema noted Arm (L), no edema noted Arm (R), no edema noted Leg (L), no edema noted Leg (R), no edema noted Pedal (L), no edema noted Pedal (R), no edema noted 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
--- NOTE | 2019-03-09 13:15 | Surgery Progress Note ---
Surgery Progress Note Subjective Additional Comments OR tomorrow had BM and painful still burning Objective Last 24 Hour Vital Signs Date Time Temp Pulse Resp B/P (MAP) Pulse Ox O2 Delivery O2 Flow Rate FiO2 03/09/19 12:16 156/98 03/09/19 12:00 98.3 76 18 156/98 (117) 93 03/09/19 10:00 160/99 (119) 03/09/19 09:00 Room Air 03/09/19 08:58 60 168/104 03/09/19 08:00 97.5 60 19 168/104 (125) 96 03/09/19 06:01 150/79 03/09/19 04:00 97.0 56 17 150/79 (102) 100 03/09/19 00:48 110/62 03/09/19 00:00 97.1 80 18 110/62 (78) 99 03/08/19 20:00 97.9 74 20 103/60 (74) 98 03/08/19 19:43 Room Air 03/08/19 17:18 139/87 03/08/19 16:00 98.1 86 17 139/87 (104) 98 I&O Intake and Output 03/08/19 03/09/19 19:00 07:00 Intake Total 315 ml Output Total 1 ml Balance 314 ml Intake Oral 240 ml IV Total 75 ml Output Stool Total 1 ml # Voids 3 Cardiovascular: RSR Respiratory: clear Abdomen: soft, flat, non-tender, present bowel sounds Extremities: no edema, no tenderness, no cyanosis Plan Problems: (1) Perirectal abscess Assessment & Plan: This is a 63-year-old female with long-standing history of hemorrhoids that presented with 20 days of carla-rectal perianal pain. Patient states that it is been ongoing for the past 2 to 3 weeks it has not significantly improved. No nausea vomiting fever chills. No leukocytosis but labs noted as above. Patient notes a mass and discomfort. States no drainage currently but noticed blood sometimes with her stool and bowel movements. Has been having bowel movements and is chronically constipated. On examination there is a anterior 12:00 midline in the perineal area between the anus area of induration tenderness and inflammation. Difficult to diagnose hemorrhoid first carla-a rectal abscess which is resolving. Potentially thrombosed hemorrhoid which is resolving. Potentially infected thrombosed hemorrhoid. Overall examination very difficult given patient's discomfort. Recommend admit for IV antibiotics and further management. Okay for liquid diet Stool softeners Bowel regimen I explained to the patient that with above therapy if she does not improve in the next 24 hours and is not okay to be discharged strongly recommend examination under anesthesia in the operating room for potential drainage perirectal abscess versus further evaluation and treatment if necessary. Patient expressed understanding. CT noted and okay states somewhat getter today no n/v/f/c discussed going to OR for EUA. states she is not ready as she feels maybe getting better EUA sunday Thank you for allowing participation's care. Will follow with recommendations (2) Hemorrhoids Luc Chacon Mar 09, 2019 13:15
--- NOTE | 2019-03-09 13:17 | Pre-Procedure Note/Attestation ---
Pre-Procedure Note/Attestation Complete Prior to Procedure Procedure Narrative: examination under anesthesia, possible lateral internal sphincterotomy, possible excision of mass Indications for Procedure Pre-Operative Diagnosis: rectal pain with perirectal mass Attestation I attest that I discussed the nature of the procedure; its benefits; risks and complications; and alternatives (and the risks and benefits of such alternatives ), prior to the procedure, with the patient (or the patient's legal in store marketing representative). I attest that, if there was a reasonable possibility of needing a blood transfusion, the patient (or the patient's legal in store marketing representative) was given the [facility] standardized written summary, pursuant to the [place] Blood Safety Act ([place] Health and Safety Code # 1645, as amended). I attest that I re-evaluated the patient just prior to the surgery and that there has been no change in the patient's H&P, except as documented below: Luc Chacon Mar 09, 2019 13:17
--- NOTE | 2019-03-09 14:02 | NUR ---
NURSE NOTES: pt signed consent form for sphincterotomy, will continue to monitor.
[2019-03-09] MEDS: Morphine Sulfate 2mg/ml Inj(IV/IM USE ONLY) IVP PRN (17:24)
--- NOTE | 2019-03-09 19:20 | NUR ---
HAND-OFF: Report given to LEONOR PEPPER. Endorsed to keep pt NPO after mid night.
--- NOTE | 2019-03-09 20:07 | NUR ---
NURSE NOTES: Pt is in bed awake, alert and oriented. Breathing on room air. No acute distress noted. IV patent and asymptomatic. Bed in low and locked position. call light within reach. Will continue to monitor.
--- NOTE | 2019-03-09 23:00 | Progress Note ---
DATE: 03/09/2019 CARDIOLOGY PROGRESS NOTE SUBJECTIVE: The patient had a bowel movement last night. She still has rectal pain, but was able to pass her stool. OBJECTIVE: VITAL SIGNS: Blood pressure is labile 110/62 to 168/104, heart rate 56 to 80, and respiratory rate 18 to 20. LUNGS: Clear. CARDIAC: Regular. Normal S1 and S2 with no murmur, rub, or gallop. ABDOMEN: Soft and nontender. EXTREMITIES: No edema. LABORATORY DATA: Baseline EKG is essentially normal. IMPRESSION: Stable from cardiovascular standpoint for general anesthesia with perirectal examination by Dr. Chacon. Scottie Flannery M.D. DR: DISHA JOB#: [id number] CC:
[2019-03-10] VITALS (13 sets, daily range): BP systolic 123–179; BP diastolic 74–105
[2019-03-10] MEDS: Piperacillin/Tazobactam 3.375 GM in NS 110 ML IVPB SCH ×3 (00:21→17:39)
[2019-03-10] MEDS: cloNIDine 0.2mg Tab ORAL SCH ×4 (00:22→17:22)
--- NOTE | 2019-03-10 02:14 | NUR ---
NURSE NOTES: Educate pt about NPO status. Pt verbalized undrstanding.
[2019-03-10] MEDS: LORazepam 1mg tab ORAL PRN (05:54)
--- NOTE | 2019-03-10 07:36 | NUR ---
HAND-OFF: Report given to EVGENY Garcia.
--- NOTE | 2019-03-10 07:49 | NUR ---
NURSE NOTES: Patient received resting in bed, eating breakfast. Alert and orientedx4. Denies pain or SOB at this time. Breathing unlabored on room air. Bed locked in lowest position. IV site on right hand patent and intact, running fluids. Call light placed within reach, will continue to monitor.
[2019-03-10 07:50] LABS: HEMATOCRIT 30.9 % (37.0-47.0); HEMOGLOBIN 9.7 G/DL (12.0-16.0); MEAN CORPUSCULAR VOLUME 79 FL (80-99); PLATELET COUNT 187 K/UL (150-450); RED CELL DISTRIBUTION WIDTH 14.3 % (11.6-14.8); WHITE BLOOD COUNT 3.5 K/UL (4.8-10.8)
[2019-03-10 08:18] LABS: ALANINE AMINOTRANSFERASE 18 U/L (12-78); ALBUMIN 3.5 G/DL (3.4-5.0); ALBUMIN/GLOBULIN RATIO 0.7 (1.0-2.7); ALKALINE PHOSPHATASE 89 U/L (46-116); ANION GAP 10 mmol/L (5-15); ASPARTATE AMINO TRANSFERASE 23 U/L (15-37); BILIRUBIN,TOTAL 0.4 MG/DL (0.2-1.0); BLOOD UREA NITROGEN 10 mg/dL (7-18); CALCIUM 8.9 MG/DL (8.5-10.1); CARBON DIOXIDE 26 MMOL/L (21-32); CHLORIDE 105 MMOL/L (98-107); CREATININE 0.9 MG/DL (0.55-1.30); POTASSIUM 3.3 MMOL/L (3.5-5.1); SODIUM 141 MMOL/L (136-145)
[2019-03-10] MEDS: Docusate 100mg cap ORAL SCH ×2 (08:28→20:36)
[2019-03-10] MEDS: Hydrocortisone 25mg supp RECTAL SCH ×2 (08:29→17:22)
--- NOTE | 2019-03-10 10:06 | NUR ---
CASE MANAGEMENT:REVIEW 03/10/19 SI: PERIRECTAL ABSCESS 97.2 56 20 179/105 100% ON RA H/H-9.7/30.9 K-3.3 IS: NICO PALACIO Q8HRS IVF@75/HR : MED/SURG 4 [facility] PLAN: SURGERY FOR~ POSSIBLE LATERAL INTERNAL SPHINCTEROTOMY AND POSSIBLE EXCISION OF MASS
--- NOTE | 2019-03-10 10:44 | Cardiology Report ---
APPROVED REPORT EXAM: Two-dimensional and M-mode echocardiogram with Doppler and color Doppler. INDICATION Murmur M-Mode DIMENSIONS IVSd1.1 (0.7-1.1cm)Left Atrium (MM)2.6 (1.6-4.0cm) LVDd3.5 (3.5-5.6cm)Aortic Root3.0 (2.0-3.7cm) PWd1.1 (0.7-1.1cm)Aortic Cusp Exc.2.0 (1.5-2.0cm) LVDs2.4 (2.5-4.0cm) PWs1.6 cm Normal left ventricular chamber size, systolic function and wall motion. Left ventricular ejection fraction estimated to be 60-65 %. Moderate LV hypertrophy with 2D. No evidence of pericardial effusion. All other cardiac chamber sizes are within normal limits. Focal aortic valve sclerosis with adequate cusp excursion. Thickened mitral valve leaflets with normal excursion. Mitral annulus and aortic root calcification. Pulmonic valve not well visualized. Normal tricuspid valve structure. IVC at normal size with physiologic collapse. A color flow and spectral Doppler study was performed and revealed: No aortic regurgitation. Trace mitral regurgitation. Mitral diastolic velocities suggest reduced left ventricular relaxation c/w mild LV diastolic dysfunction (Grade I). Trace tricuspid regurgitation. Tricuspid systolic velocities suggests peak right ventricular systolic pressure of 22 mmHg. Trace pulmonic regurgitation present.
--- NOTE | 2019-03-10 11:00 | Consultation ---
History of Present Illness General Chief Complaint: Dizziness Present Illness HPI 63F currently hospitalized for care noted floaters worsening over the years all questions answered Allergies: Coded Allergies: PEANUT (Verified Allergy, Severe, Anaphylaxis, 09/09/18) DIPHENHYDRAMINE (Verified Allergy, Mild, Itching, 09/09/18) TOMATO (Verified Allergy, Unknown, Itching, 09/09/18) Medication History Scheduled Clonidine Hcl* (Catapres*), 0.3 MG ORAL Q6HR, (Reported) Cyproheptadine Hcl (Cyproheptadine Hcl), 4 MG PO BID, (Reported) Hydrocortisone Hc 2.5% Cream (Anusol-Hc 2.5% Cream), 1 APPLIC RC TID Lactulose (Lactulose*), 30 ML ORAL BID Lidocaine HCL 2% Jelly* (Lidocaine Jelly 2%*), 1 APPLIC TOPIC DAILY Lorazepam* (Ativan*), 2 MG ORAL BEDTIME, (Reported) Nifedipine* (Nifedipine Er*), 60 MG ORAL DAILY, (Reported) Omeprazole (Omeprazole), MG ORAL DAILY, (Reported) Omeprazole (Omeprazole), 40 MG ORAL DAILY, (Reported) Scheduled PRN Cyclosporine (Restasis), 1 DROP BOTH EYES EVERY 12 HOURS PRN for For Pain, ( Reported) Tramadol Hcl* (Ultram*), 50 MG ORAL Q6H PRN for For Pain, (Reported) Miscellaneous Medications Cyproheptadine Hcl (Cyproheptadine Hcl), 4 MG PO, (Reported) Lactulose (Lactulose*), 30 ML ORAL, (Reported) Lidocaine (Lidocaine), 700 MG TP, (Reported) Patient History Healthcare decision maker Resuscitation status Full Code Advanced Directive on File Review of Systems All Other Systems: negative except mentioned in HPI Physical Exam Physical Exam Narrative no conj injection good EOM Last 24 Hour Vital Signs Date Time Temp Pulse Resp B/P (MAP) Pulse Ox O2 Delivery O2 Flow Rate FiO2 03/10/19 09:00 Room Air 03/10/19 08:29 56 179/105 03/10/19 08:00 97.2 56 20 179/105 (129) 100 03/10/19 05:49 148/82 03/10/19 04:00 98.2 71 17 125/87 (100) 95 03/10/19 00:22 130/75 03/10/19 00:00 97.1 62 17 130/75 (93) 98 03/09/19 21:00 Room Air 03/09/19 20:00 97.5 64 18 139/78 (98) 98 03/09/19 17:54 97.8 03/09/19 17:08 154/96 03/09/19 15:50 97.8 69 19 154/96 (115) 100 03/09/19 12:16 156/98 03/09/19 12:00 98.3 76 18 156/98 (117) 93 Intake and Output 03/09/19 03/10/19 19:00 07:00 Intake Total 1362.5 ml 677.5 ml Balance 1362.5 ml 677.5 ml Intake Oral 200 ml IV Total 512.5 ml 477.5 ml Other 850 ml # Voids 2 Laboratory Tests Test 03/10/19 06:59 White Blood Count 3.5 K/UL (4.8-10.8) L Red Blood Count 3.90 M/UL (4.20-5.40) L Hemoglobin 9.7 G/DL (12.0-16.0) L Hematocrit 30.9 % (37.0-47.0) L Mean Corpuscular Volume 79 FL (80-99) L Mean Corpuscular Hemoglobin 24.9 PG (27.0-31.0) L Mean Corpuscular Hemoglobin Concent 31.4 G/DL (32.0-36.0) L Red Cell Distribution Width 14.3 % (11.6-14.8) Platelet Count 187 K/UL (150-450) Mean Platelet Volume 6.5 FL (6.5-10.1) Neutrophils (%) (Auto) % (45.0-75.0) Lymphocytes (%) (Auto) % (20.0-45.0) Monocytes (%) (Auto) % (1.0-10.0) Eosinophils (%) (Auto) % (0.0-3.0) Basophils (%) (Auto) % (0.0-2.0) Differential Total Cells Counted 100 Neutrophils % (Manual) 32 % (45-75) L Lymphocytes % (Manual) 56 % (20-45) H Monocytes % (Manual) 11 % (1-10) H Eosinophils % (Manual) 1 % (0-3) Basophils % (Manual) 0 % (0-2) Band Neutrophils 0 % (0-8) Platelet Estimate Adequate Platelet Morphology Normal Hypochromasia 1+ Anisocytosis 1+ Prothrombin Time 10.2 SEC (9.30-11.50) Prothromb Time International Ratio 1.0 (0.9-1.1) Activated Partial Thromboplast Time 27 SEC (23-33) Sodium Level 141 MMOL/L (136-145) Potassium Level 3.3 MMOL/L (3.5-5.1) L Chloride Level 105 MMOL/L (98-107) Carbon Dioxide Level 26 MMOL/L (21-32) Anion Gap 10 mmol/L (5-15) Blood Urea Nitrogen 10 mg/dL (7-18) Creatinine 0.9 MG/DL (0.55-1.30) Estimat Glomerular Filtration Rate > 60 mL/min (>60) Glucose Level 130 MG/DL (74-106) H Calcium Level 8.9 MG/DL (8.5-10.1) Total Bilirubin 0.4 MG/DL (0.2-1.0) Aspartate Amino Transf (AST/SGOT) 23 U/L (15-37) Alanine Aminotransferase (ALT/SGPT) 18 U/L (12-78) Alkaline Phosphatase 89 U/L (46-116) Total Protein 8.2 G/DL (6.4-8.2) Albumin 3.5 G/DL (3.4-5.0) Globulin 4.7 g/dL Albumin/Globulin Ratio 0.7 (1.0-2.7) L Height (Feet): 5 Height (Inches): 2.00 Weight (Pounds): 152 Medications Current Medications Medications (Trade) Dose Ordered Sig/Martha Route PRN Reason Start Time Stop Time Status Last Admin Dose Admin Acetaminophen (Tylenol) 650 mg Q4H PRN ORAL t>100.5 03/05/19 12:15 04/04/19 12:14 Al Hydroxide/Mg Hydroxide (Mylanta II) 30 ml Q6H PRN ORAL dyspepsia 03/05/19 12:15 04/04/19 12:14 03/06/19 20:53 Bisacodyl (Dulcolax) 10 mg HSPRN PRN RECTAL Constipation 03/05/19 12:30 04/04/19 12:14 03/08/19 21:13 Clonidine HCl (Catapres Tab) 0.1 mg Q4H PRN ORAL For High Blood Pressure 03/09/19 09:15 04/08/19 09:14 Clonidine HCl (Catapres tab) 0.3 mg EVERY 6 HOURS ORAL 03/07/19 12:00 04/06/19 11:59 03/10/19 05:49 Dextrose (Dextrose 50%) 25 ml Q30M PRN IV Hypoglycemia 03/05/19 12:15 04/04/19 12:14 Dextrose (Dextrose 50%) 50 ml Q30M PRN IV Hypoglycemia 03/05/19 12:15 04/04/19 12:14 Docusate Sodium (Colace) 100 mg EVERY 12 HOURS ORAL 03/05/19 21:00 04/04/19 20:59 03/10/19 08:28 Famotidine (Pepcid) 40 mg DAILY ORAL 03/06/19 09:00 04/05/19 08:59 03/10/19 08:28 Hydrocortisone (Anusol HC) 25 mg TWICE A DAY RECTAL 03/06/19 18:00 04/05/19 17:59 03/09/19 17:08 Lidocaine (Xylocaine 5% cream) 1 applic EVERY 4 HOURS TOPIC 03/06/19 18:00 04/05/19 17:59 03/10/19 08:31 Lorazepam (Ativan) 1 mg Q4H PRN ORAL For Anxiety 03/05/19 12:15 03/12/19 12:14 03/10/19 05:54 Magnesium Hydroxide (Mom) 30 ml HSPRN PRN ORAL Constipation 03/05/19 12:15 04/04/19 12:14 Meclizine HCl (Antivert) 25 mg STAT PRN ORAL for dizziness 03/05/19 10:15 04/04/19 10:14 03/05/19 10:13 Morphine Sulfate (Morphine Sulfate) 2 mg Q3H PRN IVP Moderate Pain (Pain Scale 4-6) 03/05/19 12:15 03/12/19 12:14 03/09/19 17:24 Nifedipine (Procardia XL) 60 mg DAILY ORAL 03/07/19 14:00 04/06/19 13:59 03/10/19 08:29 Ondansetron HCl (Zofran) 4 mg Q6H PRN IVP Nausea & Vomiting 03/05/19 12:15 04/04/19 12:14 Piperacillin Sod/ Tazobactam Sod 3.375 gm/Sodium Chloride 110 ml @ 27.5 mls/hr Q8H IVPB 03/06/19 09:00 03/13/19 08:59 03/10/19 08:30 Polyethylene Glycol (Miralax) 17 gm HSPRN PRN ORAL Constipation 03/05/19 12:15 04/04/19 12:14 Sodium Chloride 1,000 ml @ 75 mls/hr [id number] IV 03/09/19 23:55 04/08/19 23:54 03/10/19 05:55 Temazepam (Restoril) 15 mg HSPRN PRN ORAL Insomnia 03/05/19 21:00 03/12/19 20:59 Assessment/Plan Assessment/Plan: If you have any of the following eye problems, dont wait for your next appointment visit your eye doctor as soon as possible: Decreased vision Draining or redness of the eye Eye pain Double vision Floaters (tiny specks that appear to float before your eyes) Circles (halos) around lights Flashes of light Individuals who develop diabetes mellitus type 1 should be examined by an silver recovery operator 5 years after disease onset and at least yearly thereafter.13, 14 Individuals who develop diabetes mellitus type 2 should be examined at the time of diagnosis and at least yearly thereafter.15 Women with type 1 or type 2 diabetes should receive a comprehensive eye examination before conception and then early in the first trimester of . Recommended intervals for subsequent examinations depend upon the level of retinopathy.16-18 Adults with no signs or risk factors for eye disease should receive a baseline comprehensive eye evaluation at age 40.4 Individuals without risk factors aged 40 to 54 should be examined by an silver recovery operator every 2 to 4 years. Individuals without risk factors aged 55 to 64 should be examined by an silver recovery operator every 1 to 3 years.4, 5 Individuals without risk factors 65 years old or older should have an examination performed by an silver recovery operator every 1 to 2 years as the incidence of unrecognized ocular disease increases with age.4, 5 The frequency of ocular examinations in the presence of acute or chronic disease will vary widely with intervals ranging from hours to several months, depending on the risks involved, response to treatment, and potential for the disease to progress. Any individual at higher risk for developing disease, based on ocular and medical history, family history, age, or race should have periodic examinations determined by the particular risks, even if no symptoms are present. A routine comprehensive annual adult eye examination in individuals under the age of 40 unnecessarily escalates the cost of eye care and is not indicated except as described above. Reassurance given for floaters and instructed to see optho as outpatient based on above recommendations This is a complementary visit for patient for informational care purposes Syed Newell MD Mar 10, 2019 11:00
--- NOTE | 2019-03-10 12:14 | General Progress Note ---
Assessment/Plan Problem List: (1) Syncope ICD Codes: R55 - Syncope and collapse SNOMED: 332042175 (2) Perirectal abscess ICD Codes: K61.1 - Rectal abscess SNOMED: 66791264 (3) Hemorrhoids ICD Codes: K64.9 - Unspecified hemorrhoids SNOMED: 88809658 Status: stable, progressing Assessment/Plan: bowel regime cont iv abx dc ivf prn bp meds surgery follow up for exam under anesthesia ?dc if exam negative- will d/w surgery Subjective ROS Limited/Unobtainable: No Constitutional: Reports: malaise, weakness HEENT: Reports: no symptoms Cardiovascular: Reports: no symptoms Respiratory: Reports: no symptoms Gastrointestinal/Abdominal: Reports: no symptoms Genitourinary: Reports: no symptoms Neurologic/Psychiatric: Reports: no symptoms Endocrine: Reports: no symptoms Hematologic/Lymphatic: Reports: no symptoms Allergies: Coded Allergies: PEANUT (Verified Allergy, Severe, Anaphylaxis, 09/09/18) DIPHENHYDRAMINE (Verified Allergy, Mild, Itching, 09/09/18) TOMATO (Verified Allergy, Unknown, Itching, 09/09/18) All Systems: reviewed and negative except above Subjective decreased rectal pain. npo for exam under anesthesia. BP trending up- possible exacerbated by pain. Objective Last 24 Hour Vital Signs Date Time Temp Pulse Resp B/P (MAP) Pulse Ox O2 Delivery O2 Flow Rate FiO2 03/10/19 12:07 179/105 03/10/19 09:00 Room Air 03/10/19 08:29 56 179/105 03/10/19 08:00 97.2 56 20 179/105 (129) 100 03/10/19 05:49 148/82 03/10/19 04:00 98.2 71 17 125/87 (100) 95 03/10/19 00:22 130/75 03/10/19 00:00 97.1 62 17 130/75 (93) 98 03/09/19 21:00 Room Air 03/09/19 20:00 97.5 64 18 139/78 (98) 98 03/09/19 17:54 97.8 03/09/19 17:08 154/96 03/09/19 15:50 97.8 69 19 154/96 (115) 100 03/09/19 12:16 156/98 Intake and Output 03/09/19 03/10/19 19:00 07:00 Intake Total 1362.5 ml 677.5 ml Balance 1362.5 ml 677.5 ml Intake Oral 200 ml IV Total 512.5 ml 477.5 ml Other 850 ml # Voids 2 Laboratory Tests 03/10/19 06:59: White Blood Count 3.5L, Red Blood Count 3.90L, Hemoglobin 9.7L, Hematocrit 30.9L , Mean Corpuscular Volume 79L, Mean Corpuscular Hemoglobin 24.9L, Mean Corpuscular Hemoglobin Concent 31.4L, Red Cell Distribution Width 14.3, Platelet Count 187, Mean Platelet Volume 6.5, Neutrophils (%) (Auto) , Lymphocytes (%) (Auto) , Monocytes (%) (Auto) , Eosinophils (%) (Auto) , Basophils (%) (Auto) , Differential Total Cells Counted 100, Neutrophils % ( Manual) 32L, Lymphocytes % (Manual) 56H, Monocytes % (Manual) 11H, Eosinophils % (Manual) 1, Basophils % (Manual) 0, Band Neutrophils 0, Platelet Estimate Adequate, Platelet Morphology Normal, Hypochromasia 1+, Anisocytosis 1+, Prothrombin Time 10.2, Prothromb Time International Ratio 1.0, Activated Partial Thromboplast Time 27, Sodium Level 141, Potassium Level 3.3L, Chloride Level 105, Carbon Dioxide Level 26, Anion Gap 10, Blood Urea Nitrogen 10, Creatinine 0.9, Estimat Glomerular Filtration Rate > 60, Glucose Level 130H, Calcium Level 8.9, Total Bilirubin 0.4, Aspartate Amino Transf (AST/SGOT) 23, Alanine Aminotransferase (ALT/SGPT) 18, Alkaline Phosphatase 89, Total Protein 8.2, Albumin 3.5, Globulin 4.7, Albumin/Globulin Ratio 0.7L Height (Feet): 5 Height (Inches): 2.00 Weight (Pounds): 152 Objective General Appearance: WD/WN, alert Cardiovascular: regular rhythm Respiratory/Chest: lungs clear, normal breath sounds Abdomen: normal bowel sounds, non tender, soft, no organomegaly Edema: no edema noted Arm (L), no edema noted Arm (R), no edema noted Leg (L), no edema noted Leg (R), no edema noted Pedal (L), no edema noted Pedal (R), no edema noted Generalized Neurologic: legal support assistant II-XII grossly normal, no motor/sensory deficits, abnormal gait , alert, oriented x 3 Jeremy Leonard MD Mar 10, 2019 12:14
[2019-03-10] MEDS ORDERED: Lidocaine HCl 2% Jelly 6ml Tube TOPIC ONE (13:28)
[2019-03-10] MEDS ORDERED: Gelfoam Size TOPIC ONE (13:29)
[2019-03-10] MEDS ORDERED: Neostigmine 1mg/ml 10ml Inj ONE (13:30)
[2019-03-10] MEDS ORDERED: Lidocaine 1% MPF 10mg/ml 5ml ONE (13:30)
[2019-03-10] MEDS ORDERED: Propofol 200mg/20ml IV ONE (13:30)
[2019-03-10] MEDS ORDERED: LR 1000ml ONE (13:30)
[2019-03-10] MEDS ORDERED: Sterile Water Irrig 1000ml IRRIG ONE (13:30)
[2019-03-10] MEDS ORDERED: Rocuronium Bromide 50mg/5ml Inj IV ONE ×2 (13:30→13:43)
[2019-03-10] MEDS ORDERED: NS Irrig 1000ml ONE (13:30)
[2019-03-10] MEDS ORDERED: Midazolam 2mg/2ml Inj ONE (13:31)
[2019-03-10] MEDS ORDERED: NS Irrig 1000ml IRRIG ONE (14:10)
[2019-03-10] MEDS ORDERED: LR 1000ml 1,000 ML IVLG SCH (14:10)
[2019-03-10] MEDS ORDERED: Ketorolac 30mg Inj IV PRN ×2 (14:15)
[2019-03-10] MEDS ORDERED: Hydromorphone 0.5mg/0.5ml inj IVP PRN (14:15)
[2019-03-10] MEDS ORDERED: Midazolam 2mg/2ml Inj IVP PRN (14:15)
[2019-03-10] MEDS ORDERED: Atropine Sulfate 0.4mg/ml inj IVP PRN (14:15)
[2019-03-10] MEDS ORDERED: LORazepam Inj 2mg/ml 1ml IV PRN (14:15)
[2019-03-10] MEDS ORDERED: HYDROcodone/Acetamin 5/325 tab ORAL PRN (14:15)
[2019-03-10] MEDS ORDERED: oxyCODONE HCL/Acetaminophen 5/325mg ORAL PRN (14:15)
[2019-03-10] MEDS ORDERED: fentaNYL 100 mcg/2 mL IV PRN (14:15)
[2019-03-10] MEDS ORDERED: HYDROcodone/Acetamin 7.5/325 tab ORAL PRN (14:15)
[2019-03-10] MEDS ORDERED: Meperidine 50mg/ml Inj(FOR RIGORS ONLY) IVP PRN (14:15)
[2019-03-10] MEDS ORDERED: Metoclopramide 10mg/2ml Inj IVP PRN (14:15)
[2019-03-10] MEDS ORDERED: Glycopyrrolate 0.2mg/ml 1ml Vial ONE (14:20)
--- NOTE | 2019-03-10 14:48 | Anethesia Preoperative Eval ---
Anesthesia Pre-op PMH/ROS General Date of Evaluation: Mar 10, 2019 Time of Evaluation: 13:32 Anesthesiologist: Ifrah ASA Score: ASA 3 Mallampati Score Class I : Soft palate, uvula, fauces, pillars visible Class II: Soft palate, uvula, fauces visible Class III: Soft palate, base of uvula visible Class IV: Only hard plate visible Mallampati Classification: Class II Surgeon: Ines Diagnosis: Rectal Pain Surgical Procedure: EUA, Prone Anesthesia History: none Family History: no anesthesia problems Allergies: Coded Allergies: PEANUT (Verified Allergy, Severe, Anaphylaxis, 09/09/18) DIPHENHYDRAMINE (Verified Allergy, Mild, Itching, 09/09/18) TOMATO (Verified Allergy, Unknown, Itching, 09/09/18) Medications: see eMAR Patient NPO?: Yes NPO Date: Mar 09, 2019 NPO Time: 0543 Past Medical History Cardiovascular: Reports: HTN Gastrointestinal/Genitourinary: Reports: GERD, other - Hemmorrhoids Hematology/Immune: Reports: other - Sjogrens, Raynauds Syndrome Anesthesia Pre-op Phys. Exam Physician Exam Last Vital Signs Date Time Temp Pulse Resp B/P (MAP) Pulse Ox O2 Delivery O2 Flow Rate FiO2 03/10/19 12:07 179/105 03/10/19 12:00 97.7 54 20 100 03/10/19 09:00 Room Air Constitutional: NAD Neurologic: CN 2-12 intact Cardiovascular: RRR Respiratory: CTA Gastrointestinal: S/NT/ND Airway Exam Mallampati Score: Class II MO: full ROM: full Teeth: missing, intact Anesthesia Pre-op A/P Labs Hematology Test 03/10/19 06:59 White Blood Count 3.5 K/UL (4.8-10.8) L Red Blood Count 3.90 M/UL (4.20-5.40) L Hemoglobin 9.7 G/DL (12.0-16.0) L Hematocrit 30.9 % (37.0-47.0) L Mean Corpuscular Volume 79 FL (80-99) L Mean Corpuscular Hemoglobin 24.9 PG (27.0-31.0) L Mean Corpuscular Hemoglobin Concent 31.4 G/DL (32.0-36.0) L Red Cell Distribution Width 14.3 % (11.6-14.8) Platelet Count 187 K/UL (150-450) Mean Platelet Volume 6.5 FL (6.5-10.1) Neutrophils (%) (Auto) % (45.0-75.0) Lymphocytes (%) (Auto) % (20.0-45.0) Monocytes (%) (Auto) % (1.0-10.0) Eosinophils (%) (Auto) % (0.0-3.0) Basophils (%) (Auto) % (0.0-2.0) Differential Total Cells Counted 100 Neutrophils % (Manual) 32 % (45-75) L Lymphocytes % (Manual) 56 % (20-45) H Monocytes % (Manual) 11 % (1-10) H Eosinophils % (Manual) 1 % (0-3) Basophils % (Manual) 0 % (0-2) Band Neutrophils 0 % (0-8) Platelet Estimate Adequate Platelet Morphology Normal Hypochromasia 1+ Anisocytosis 1+ Coagulation Test 03/10/19 06:59 Prothrombin Time 10.2 SEC (9.30-11.50) Prothromb Time International Ratio 1.0 (0.9-1.1) Activated Partial Thromboplast Time 27 SEC (23-33) Chemistry Test 03/10/19 06:59 Sodium Level 141 MMOL/L (136-145) Potassium Level 3.3 MMOL/L (3.5-5.1) L Chloride Level 105 MMOL/L (98-107) Carbon Dioxide Level 26 MMOL/L (21-32) Anion Gap 10 mmol/L (5-15) Blood Urea Nitrogen 10 mg/dL (7-18) Creatinine 0.9 MG/DL (0.55-1.30) Estimat Glomerular Filtration Rate > 60 mL/min (>60) Glucose Level 130 MG/DL (74-106) H Calcium Level 8.9 MG/DL (8.5-10.1) Total Bilirubin 0.4 MG/DL (0.2-1.0) Aspartate Amino Transf (AST/SGOT) 23 U/L (15-37) Alanine Aminotransferase (ALT/SGPT) 18 U/L (12-78) Alkaline Phosphatase 89 U/L (46-116) Total Protein 8.2 G/DL (6.4-8.2) Albumin 3.5 G/DL (3.4-5.0) Globulin 4.7 g/dL Albumin/Globulin Ratio 0.7 (1.0-2.7) L Risk Assessment & Plan Assessment: ASA 3 Plan: GA, SED, GlideScope Go Status Change Before Surgery: No Pre-Antibiotics Drug: On Floor Given Within 1 Hr of Incision: Yes Marshall Rg MD Mar 10, 2019 14:48
--- NOTE | 2019-03-10 14:57 | Immediate Post-Op Evaluation ---
Immediate Post-Op Evalulation Immediate Post-Op Evalulation Procedure: EUA, Lateral Internal Sphincterotomy Date of Evaluation: Mar 10, 2019 Time of Evaluation: 14:51 IV Fluids: 400 LR Blood Products: 0 Estimated Blood Loss: 10 Urinary Output: 0 Blood Pressure Systolic: 164 Blood Pressure Diastolic: 97 Pulse Rate: 64 Respiratory Rate: 16 O2 Sat by Pulse Oximetry: 100 Temperature (Fahrenheit): 97.4 Pain Score (1-10): 2 Nausea: No Vomiting: No Complications 0 Patient Status: awake, reacts, patent, extubated, none Hydration Status: adequate Given Within 1 Hr of Incision: Yes Marshall Rg MD Mar 10, 2019 14:57
--- NOTE | 2019-03-10 15:41 | Brief Operative Note ---
Immediate Post Operative Note Operative Note Pre-op Diagnosis: rectal pain with perirectal mass Procedure: examination under anesthesia lateral internal sphincterotomy Post-op Diagnosis: same as pre-op Surgeon: corazon Anesthesiologist: gale Anesthesia: general, local Specimen: none Complications: none Condition: stable Fluids: see records Estimated Blood Loss: minimal Drains: none Implant(s) used?: Luc Melgar Mar 10, 2019 15:41
--- NOTE | 2019-03-10 19:53 | NUR ---
NURSE NOTES: Received patient in bed,asleep, no acute distress noted, VSS, afebrile, IV site is clean dry and intact, call light is within reach, bed is in low position, locked and alarm is on. Will continue to monitor for comfort and safety.
[2019-03-10] MEDS: Morphine Sulfate 2mg/ml Inj(IV/IM USE ONLY) IVP PRN (20:36)
[2019-03-11] VITALS: BP 136/85
--- NOTE | 2019-03-11 00:45 | Operative Note - Dictated ---
DATE OF OPERATION: 03/10/2019 PREOPERATIVE DIAGNOSIS: Extreme perirectal pain with abnormal perirectal tissue. POSTOPERATIVE DIAGNOSES: 1. Posterior midline anal fissure. 2. Internal hemorrhoids. 3. External hemorrhoidal tag. OPERATIONS PERFORMED: 1. Examination under anesthesia. 2. Lateral internal sphincterotomy. 3. Rigid proctosigmoidoscopy. ATTENDING SURGEON: Luc Chacon M.D. AUTOMATION ENGINEERING MANAGER: None. ANESTHESIOLOGIST: Marshall Rg M.D. ANESTHESIA: General TECHNICAL WRITER plus local. ESTIMATED BLOOD LOSS: Minimal. IV FLUIDS: Please see anesthesia records. COMPLICATIONS: None. DRAINS: None. COUNTS: Sponge and needle count correct x2. SPECIMENS: None. WOUND CLASSIFICATION: Class 3. INDICATIONS FOR PROCEDURE: This is a 63-year-old female, who is currently admitted to [facility] for care and management. The patient stated that approximately 20 days prior to admission, she began to have some perirectal discomfort and it has persisted since. She is to seek outpatient care for over 2 weeks with suppositories, local creams, and dietary changes and interventions and the pain has only worsened causing more discomfort. She feels an area of masslike lesion in the perirectal area. The patient was unable to be examined at the bedside given the amount of pain. She could not tolerate any formal examination including anoscopy, digital rectal exam, or significant exam to identify the true etiology of the patient's condition. The patient is elderly and has been dealing with it for the past few weeks and was extremely uncomfortable and was unable to go home in this condition and therefore was scheduled for examination under anesthesia. The risks, benefits, and alternatives were discussed with the patient in detail, who expressed understanding and consented to surgery. OPERATIVE NOTE: The patient was taken to the operating room and placed on the operating table in supine position with all bony prominences well padded. SCDs were placed. Preoperative time-out were taken in identifying the patient, procedure, operative staff, and surgical staff. General anesthesia was induced and the patient was intubated. The patient was placed in the supine jackknife position and all bony prominences were ensured to be well padded and anatomically appropriate. The perianal region was prepped and draped in standard surgical fashion. On initial examination, it was clearly identified that the patient had a fairly large posterior midline anal fissure. Furthermore in the anterior midline, the patient had a 1 to 2 cm prior hemorrhoidal tag externally, which was currently benign. A rigid proctoscopy was performed and no significant masses identified at 15 cm and multiple moderate sized internal hemorrhoids noted without significant friability or acute concern. It is extremely chronic in nature. Once this is completed, the anal sphincter was noted to be fairly tight and likely the etiology of the patient's pain, discomfort, and the fissure formation. Local anesthetic was infiltrated in all 4 quadrants for a local block followed by skin. At this time, decision was made to proceed with internal lateral sphincterotomy. A corneal knife micro blade was brought onto the operative field and placed in between the internal-external sphincter directed by digital palpation on the posterior aspect of the finger. Once in appropriate positioning, the knife was turned 90 degrees and the sphincters were divided. Lateral internal sphincterotomy was performed without complication and appropriate amount of fibers were taken to ensure avoiding incontinence. Once this was completed, a Gel-Foam with lidocaine jelly was placed into the anus followed by dressings. The patient tolerated the procedure well, was extubated, and taken to postanesthesia care in stable condition. Findings were discussed with the patient's family members as well as care plan. Luc Chacon M.D. DR: MAGALI JOB#: [id number] CC: KENNEDY
[2019-03-11] MEDS: cloNIDine 0.2mg Tab ORAL SCH ×3 (01:16→13:06)
[2019-03-11] MEDS: Piperacillin/Tazobactam 3.375 GM in NS 110 ML IVPB SCH ×2 (01:17→10:25)
[2019-03-11] MEDS: Morphine Sulfate 2mg/ml Inj(IV/IM USE ONLY) IVP PRN ×3 (01:25→13:11)
[2019-03-11 04:00] VITALS: BP 143/90
[2019-03-11] MEDS: Mylanta II UD 30ml ORAL PRN (05:02)
[2019-03-11] MEDS: LORazepam 1mg tab ORAL PRN ×2 (05:09→10:24)
[2019-03-11 07:09] LABS: ALANINE AMINOTRANSFERASE 21 U/L (12-78); ALBUMIN 3.3 G/DL (3.4-5.0); ALBUMIN/GLOBULIN RATIO 0.8 (1.0-2.7); ALKALINE PHOSPHATASE 76 U/L (46-116); ANION GAP 7 mmol/L (5-15); ASPARTATE AMINO TRANSFERASE 25 U/L (15-37); BILIRUBIN,TOTAL 0.3 MG/DL (0.2-1.0); BLOOD UREA NITROGEN 13 mg/dL (7-18); CALCIUM 8.4 MG/DL (8.5-10.1); CARBON DIOXIDE 29 MMOL/L (21-32); CHLORIDE 106 MMOL/L (98-107); CREATININE 1.1 MG/DL (0.55-1.30); SODIUM 142 MMOL/L (136-145)
--- NOTE | 2019-03-11 07:15 | Progress Note ---
DATE: 03/10/2019 CARDIOLOGY PROGRESS NOTE SUBJECTIVE: The patient underwent general anesthesia for evaluation of right perirectal pain. Findings were notable for midline anal fissure and hemorrhoids. No complications noted. PHYSICAL EXAMINATION: VITAL SIGNS: Blood pressure 138/85, pulse 63, respirations 20. LUNGS: Clear. CARDIAC: Regular. Normal S1, S2 with no murmur. ABDOMEN: Soft. EXTREMITIES: No edema. LABORATORY DATA: White count 3.5, hemoglobin 9.7. Potassium . IMPRESSION: 1. Hemorrhoids. 2. Anal fissure. 3. Hypokalemia. 4. Hypertension. PLAN: 1. Replace potassium. 2. Perirectal care. 3. Pain control. 4. Taper off IV fluids once diet is resumed. Scottie Flannery M.D. DR: ORAL JOB#: [id number] CC:
[2019-03-11 07:20] LABS: BASOPHILS % (AUTO) 1.3 % (0.0-2.0); EOSINOPHILS % (AUTO) 3.2 % (0.0-3.0); HEMOGLOBIN 9.7 G/DL (12.0-16.0); LYMPHOCYTES % (AUTO) 52.1 % (20.0-45.0); MEAN CORPUSCULAR VOLUME 79 FL (80-99); MONOCYTES % (AUTO) 8.8 % (1.0-10.0); NEUTROPHILS % (AUTO) 34.6 % (45.0-75.0); PLATELET COUNT 204 K/UL (150-450); RED BLOOD COUNT 3.93 M/UL (4.20-5.40); RED CELL DISTRIBUTION WIDTH 14.4 % (11.6-14.8); WHITE BLOOD COUNT 4.4 K/UL (4.8-10.8)
--- NOTE | 2019-03-11 07:28 | NUR ---
HAND-OFF: Report given to Keysha PEPPER.
--- NOTE | 2019-03-11 07:43 | 48 Hour Post Anesthesia Eval ---
Post Anesthesia Evaluation Procedure: EUA, Lateral Internal Sphincterotomy Date of Evaluation: Mar 11, 2019 Airway: patent Nausea: No Vomiting: No Hydration Status: adequate Cardiopulmonary Status: at baseline Mental Status/LOC: patient returned to baseline Post-Anesthesia Complications: 0 Follow-up care needed: N/A - further care as per primary team Sapna Vogt MD Mar 11, 2019 07:43
--- NOTE | 2019-03-11 08:00 | NUR ---
NURSE NOTES: Patient alert and oriented,respirations unlabored.IV fluids infusing as ordered.Noted patient with dressing intact to buttocks.Call light within reach.
[2019-03-11 08:33] VITALS: BP 147/90
[2019-03-11] MEDS: Docusate 100mg cap ORAL SCH (10:02)
[2019-03-11] MEDS: Hydrocortisone 25mg supp RECTAL SCH (10:04)
[2019-03-11 12:00] VITALS: BP 151/87
--- NOTE | 2019-03-11 13:04 | NUR ---
CHARGE NURSE NOTE: K-3.0. Pt wants to go home. cleared pt for d/c. notified.
--- NOTE | 2019-03-11 14:33 | NUR ---
P.T Note: P.T evaluation completed. Pt is alert , o x 4 , pleasant and cooperative. Pt denied major pain but soreness from surgical site. Pt is currently functional independently at baseline. Skilled P.T service not warranted at this time. PR P.T services. Thank you for this referral.
--- NOTE | 2019-03-11 15:04 | Surgery Progress Note ---
Surgery Progress Note Subjective Procedure Performed examination under anesthesia lateral internal sphincterotomy Symptoms: improved, tolerating diet, voiding well, passing flatus Additional Comments States somewhat improved today. Has not had a bowel movement but can feel the packing in her anus. Otherwise comfortable. Wants to go home today Objective Last 24 Hour Vital Signs Date Time Temp Pulse Resp B/P (MAP) Pulse Ox O2 Delivery O2 Flow Rate FiO2 03/11/19 13:06 141/90 03/11/19 10:01 51 151/87 03/11/19 08:33 97.7 57 18 147/90 (109) 95 03/11/19 06:05 138/78 03/11/19 04:00 97.8 58 17 143/90 (107) 98 03/11/19 03:04 98.0 03/11/19 01:16 135/78 03/11/19 00:00 97.9 63 20 136/85 (102) 99 03/10/19 21:34 Room Air 03/10/19 20:00 97.2 83 20 123/74 (90) 98 03/10/19 17:22 157/94 03/10/19 17:00 98.0 20 156/80 (105) 100 03/10/19 15:40 97.7 60 18 157/94 100 Room Air 03/10/19 15:25 61 17 165/96 100 Room Air 03/10/19 15:10 63 23 169/96 100 Room Air I&O Intake and Output 03/10/19 03/11/19 19:00 07:00 Intake Total 500 ml Output Total 10 ml Balance 490 ml IV Total 500 ml Estimated Blood Loss 10 ml # Voids 2 Wound: clean Cardiovascular: RSR Respiratory: clear Abdomen: soft, flat, non-tender, present bowel sounds Extremities: no edema, no tenderness, no cyanosis Laboratory Tests Test 03/11/19 06:29 White Blood Count 4.4 K/UL (4.8-10.8) L Red Blood Count 3.93 M/UL (4.20-5.40) L Hemoglobin 9.7 G/DL (12.0-16.0) L Hematocrit 31.0 % (37.0-47.0) L Mean Corpuscular Volume 79 FL (80-99) L Mean Corpuscular Hemoglobin 24.6 PG (27.0-31.0) L Mean Corpuscular Hemoglobin Concent 31.1 G/DL (32.0-36.0) L Red Cell Distribution Width 14.4 % (11.6-14.8) Platelet Count 204 K/UL (150-450) Mean Platelet Volume 7.2 FL (6.5-10.1) Neutrophils (%) (Auto) 34.6 % (45.0-75.0) L Lymphocytes (%) (Auto) 52.1 % (20.0-45.0) H Monocytes (%) (Auto) 8.8 % (1.0-10.0) Eosinophils (%) (Auto) 3.2 % (0.0-3.0) H Basophils (%) (Auto) 1.3 % (0.0-2.0) Sodium Level 142 MMOL/L (136-145) Potassium Level 3.0 MMOL/L (3.5-5.1) L Chloride Level 106 MMOL/L (98-107) Carbon Dioxide Level 29 MMOL/L (21-32) Anion Gap 7 mmol/L (5-15) Blood Urea Nitrogen 13 mg/dL (7-18) Creatinine 1.1 MG/DL (0.55-1.30) Estimat Glomerular Filtration Rate > 60 mL/min (>60) Glucose Level 123 MG/DL (74-106) H Calcium Level 8.4 MG/DL (8.5-10.1) L Magnesium Level 1.3 MG/DL (1.8-2.4) L Total Bilirubin 0.3 MG/DL (0.2-1.0) Aspartate Amino Transf (AST/SGOT) 25 U/L (15-37) Alanine Aminotransferase (ALT/SGPT) 21 U/L (12-78) Alkaline Phosphatase 76 U/L (46-116) Total Protein 7.6 G/DL (6.4-8.2) Albumin 3.3 G/DL (3.4-5.0) L Globulin 4.3 g/dL Albumin/Globulin Ratio 0.8 (1.0-2.7) L Plan Problems: (1) Perirectal abscess Assessment & Plan: This is a 63-year-old female with long-standing history of hemorrhoids that presented with 20 days of carla-rectal perianal pain. Patient states that it is been ongoing for the past 2 to 3 weeks it has not significantly improved. No nausea vomiting fever chills. No leukocytosis but labs noted as above. Patient notes a mass and discomfort. States no drainage currently but noticed blood sometimes with her stool and bowel movements. Has been having bowel movements and is chronically constipated. On examination there is a anterior 12:00 midline in the perineal area between the anus area of induration tenderness and inflammation. Difficult to diagnose hemorrhoid first carla-a rectal abscess which is resolving. Potentially thrombosed hemorrhoid which is resolving. Potentially infected thrombosed hemorrhoid. Overall examination very difficult given patient's discomfort. Recommend admit for IV antibiotics and further management. Okay for liquid diet Stool softeners Bowel regimen I explained to the patient that with above therapy if she does not improve in the next 24 hours and is not okay to be discharged strongly recommend examination under anesthesia in the operating room for potential drainage perirectal abscess versus further evaluation and treatment if necessary. Patient expressed understanding. CT noted and okay states somewhat getter today no n/v/f/c Status post examination under anesthesia. Local anesthetic infiltration and lateral internal sphincterotomy. Improving. Discharge home today Prescriptions written Follow-up with PCP, electric bath attendant, myself in 1 week Thank you for allowing participation's care. Will follow with recommendations (2) Hemorrhoids Luc Chacon Mar 11, 2019 15:04
[2019-03-11 16:00] VITALS: BP 146/89
--- NOTE | 2019-03-11 17:00 | NUR ---
NURSE NOTES: Patient was discharge with discharge instructions given.IV was removed and ID hospital band removed.Patient has her personal belongings and cell phone.patient has her discharge medications.Patient daughter is her and will provide the transportation.patient accompany down to private vehicle.
--- NOTE | 2019-03-12 01:15 | Discharge Summary ---
DATE OF ADMISSION: 03/05/2019 DATE OF DISCHARGE: 03/11/2019 ADMISSION DIAGNOSIS: 1. Possible perirectal abscesses versus severe hemorrhoid pain. 2. History of hypertension. HOSPITAL COURSE: The patient is a pleasant female, who was admitted with complaints of severe rectal pain. She had been treated with antibiotic therapy for possible perirectal abscess. Clinically, she initially did not improve. She underwent an exam under anesthesia and there is no clear evidence of abscess. It is possible that the patient was improving with antibiotic therapy. Regardless, the patient was cleared by the surgeon for discharge and was discharged home with instructions to follow up with the surgeon. DISCHARGE MEDICATIONS: Please see discharge medication list for discharge medications. DIET: Regular diet. ACTIVITIES: Ad-teresita. Jeremy Leonard M.D. DR: MARTA JOB#: [id number] CC:
--- NOTE | 2019-03-12 06:30 | Progress Note ---
DATE: 03/11/2019 CARDIOLOGY PROGRESS NOTE SUBJECTIVE: No new bleeding. Surgical finding yesterday as noted. PHYSICAL EXAMINATION: VITAL SIGNS: Stable with good blood pressure control. Blood pressure 151/87, pulse 51, respiratory rate 18. LUNGS: Clear. CARDIAC: Regular. ABDOMEN: Soft. EXTREMITIES: No edema. LABORATORY AND DIAGNOSTIC DATA: Hemoglobin 9.7. Potassium 3, Magnesium 1.3. PLAN: 1. Potassium and magnesium replacement. 2. Titrate and advance antihypertensives. 3. Outpatient followup. 4. Aldactone may be useful as well moth exterminator. Scottie Flannery M.D. DR: Rosa JOB#: [id number] CC:
--- NOTE | 2019-03-12 08:26 | Discharge Summary ---
Discharge Summary Discharge Summary _ Primary DATE OF ADMISSION: 03/05/2019 DATE OF DISCHARGE 03/11/2019 DISCHARGED BY: Dr. Leonard REASON FOR ADMISSION: [] 63 years old female with past medical history of hypertension, surgeon syndrome, Sjogren's syndrome, Raynaud's syndrome, gastroesophageal reflux disease, osteoarthritis presented to emergency department complaining of dizziness with associated nausea and generalized weakness. No vomiting. Patient reported hemorrhoids history and intermittent bleeding for 1 month. She denied chest pain shortness of breath loss of consciousness syncope numbness tingling headache. She reported burning in her anal area occasionally with a hard stool upon evaluation vital signs are stable. Laboratory work-up revealed WBC 3.2 hemoglobin 10.6 hematocrit 33.5 platelet count 234. Stable electrolytes BUN 24 creatinine 1.2. Glucose 130. Stable LFT light Albumin 4.5. He daily had revealed no acute intracranial pathology. Chest x-ray demonstrated a no acute cardiopulmonary pathology. CT of the abdomen and troponin negative EKG reveals sinus rhythm no acute ischemic changes. Patient seen her primary care provider a week ago. She tried topical lidocaine Anusol and sitz baths without relief. She reported loose stool but still had pain. Surgeon evaluated patient in emergency department and rectal examination patient had a an right hemorrhoidal talk potentially thrombosed hemorrhoid versus perianal infectious process. Noted inflammation and induration in the area extending toward the perineum. No drainage. Tender on examination. Surgeon was unable to perform a digital rectal examination or to anal exam given significant discomfort. Patient admitted for further management. Presented with a long-standing history of hemorrhoids and 20 days of perirectal and perianal pain. Patient had intermittent bleeding patient tried to topical lidocaine on years old and she is back home without relief. Clinical examination revealed MAC and discomfort. On examination there was anterior 12 00 midline in the perineal area between the chronicity of induration tenderness and inflammation. 63-year-old female, who is currently admitted to [facility] for care and management. The patient stated that approximately 20 days prior to admission, she began to have some perirectal discomfort and it has persisted since. She is to seek outpatient care for over 2 weeks with suppositories, local creams, and dietary changes and interventions and the pain has only worsened causing more discomfort. She feels an area of masslike lesion in the perirectal area. The patient was unable to be examined at the bedside given the amount of pain. She could not tolerate any formal examination including anoscopy, digital rectal exam, or significant exam to identify the true etiology of the patient's condition. The patient is elderly and has been dealing with it for the past few weeks and was extremely uncomfortable and was unable to go home in this condition and therefore was scheduled for examination under anesthesia. CONSULTANTS: roller leveler operator Dr. Flannery neurologist pulmonary ID specialist GI specialist rocket scientist poly packer and heat sealer/oncologist surgery Dr. Chacon Foreign Exchange Student Coordinator Dr. Richter psychiatrist HOSPITAL COURSE: [] Patient admitted to medical surgical floor. Patient started on intravenous hydration and empiric antibiotic. Pain management was advised. Patient started on liquid diet. Both of them are provided. Bowel regimen instituted. Patient subsequently undergone CT of the abdomen and pelvis the next day which revealed no definite cranial abnormality or other findings to explain stated clinical history of perianal pain or palpable mass. Colonic diverticulosis without evidence of diverticulitis. Pain management was addressed with multiply modalities including lidocaine cream and suppository did not help. Patient experienced no improvement in comfort with lidocaine cream but still has significant burning. Echocardiography Radiology Technologist followed. Echocardiogram revealed preserved ejection fraction 60 to 65% with moderate left ventricular hypertrophy. No evidence of pericardial effusion. No evidence of wall motion abnormality. Right ventricular systolic pressure of 22. Per roller leveler operator heart murmur did not appear to be of hemodynamic significance. Patient continued to have pain. Echocardiography Radiology Technologist clear patient for general anesthesia with a perirectal examination by surgeon. Patient subsequently undergone a 1111 examination under anesthesia lateral internal sphincterotomy and rigid proctoscopy sigmoidoscopy. Patient was noted to have internal hemorrhoids, posterior midline anal fissure and external hemorrhoidal tach. No significant masses were identified by 15 cm. Multiply moderate sized internal hemorrhoids noted without significant friability or acute concern. Apparently chronic in nature. Anal sphincter was noted to be fairly tight and likely the etiology of the patient pain discomfort and effusion formation. Patient left around internal sphincterotomy was performed without complication. Patient tolerated procedure well. After procedure patient significantly improved her symptoms improved. Patient was able to tolerate diet. Patient voided well. Patient was passing flatulence. Patient had no bowel movement. She voiced desire to go home since her pain was controlled. Foreign Exchange Student Coordinator seen the patient for her joint syndrome. Large and syndrome. Patient reported more floaters floaters worsening over the years. He recommended appropriate "ophthalmoscopic for" Macrobid in examination. Information for patient provided as to when to seek emergency senior validation engineer care including decreased vision, drainage or redness of the eye, double vision, eye pain, floaters, circles around lights and flashes of light Renal parameters electrolytes are closely monitor. Potassium was replaced. And magnesium were replaced. BUN from 24 down to 13 prior to discharge creatinine remained stable. Patient clinically stabilized and was ready for discharge FINAL DIAGNOSES: 1. [] Perirectal abscess versus hemorrhoid Hemorrhoid Rectal pain and bleeding Hypovolemia and dehydration with associated near syncope resolved Status poor 1111 examination under anesthesia, lateral internal sphincterotomy, rigid proctosigmoidoscopy Posterior midline anal fissure Internal hemorrhoids External hemorrhoidal tag Hypertension Hypokalemia History ofSjogren's and Raynaud's. Syndrome History of heart murmur, not of hemodynamic significant DISCHARGE MEDICATIONS: See Medication Reconciliation list. DISCHARGE INSTRUCTIONS: [] I have been assigned to dictate discharge summary for this account. I was not involved in the patient's management. Sailaja Bee NP Mar 12, 2019 08:26
== END 2019-03-11 17:12 | disposition home or self-care (01) | DRG 349 ==
LOC: EMR 10:20 → 4E 12:11 → EDBEDREQ 13:01
PROC: 0DJD8ZZ Inspection of Lower Intestinal Tract, Via Natural or Artificial Opening Endoscopic (ICD-10-PCS; principal; 2019-03-10 14:30)
PROC: 0D8R0ZZ Division of Anal Sphincter, Open Approach (ICD-10-PCS; principal; 2019-03-10 14:30)
DX: K60.2 Anal fissure, unspecified (principal); R42 Dizziness and giddiness; E86.0 Dehydration; E86.1 Hypovolemia; R55 Syncope and collapse; M35.00 Sjogren syndrome, unspecified; I10 Essential (primary) hypertension; D64.9 Anemia, unspecified; K64.8 Other hemorrhoids; K64.4 Residual hemorrhoidal skin tags; Z88.6 Allergy status to analgesic agent; Z88.8 Allergy status to other drugs, medicaments and biological substances; K21.9 Gastro-esophageal reflux disease without esophagitis; R01.1 Cardiac murmur, unspecified
CPT/HCPCS: 36415; 70450; 71045; 74177; 80048; 80053; 83735; 84484; 85007; 85025; 85610; 85730; 93005; 93306; 94003; 94150; 96365; 96375; 99285; J2250; J2405; J2710; J7030; J8499

== ENCOUNTER 2019-06-16 08:43 | Emergency (ER) | payer MEDICARE, OTHER ==
[~2019-06-16] VITALS: Ht 157.5 cm; Wt 64.4 kg
[~2019-06-16 08:43] MED LIST changes: +ATIVAN2 MG ORAL; +CATAPRES0.3 MG ORAL; +LIDOCAINE700 M1 TP; +NIFEDIPINE ER60 M2 ORAL; +OMEPRAZOLE40 M1 ORAL; +TRAMADOL HCL50 MG ORAL
--- NOTE | 2019-06-16 08:50 | NUR ---
ED Nurse Note: Patient walked in to ER from home c/o itching all over the body, and swolen neck.
[2019-06-16 09:01] VITALS: BP 130/94
[2019-06-16] MEDS ORDERED: HydrOXYzine tab 25mg tab ORAL ONE (09:15)
--- NOTE | 2019-06-16 09:17 | Emergency Room Report ---
History of Present Illness General Chief Complaint: Allergies Source: Patient Present Illness HPI Patient presents with complaints of itching diffusely facial area upper chest arms and lower extremity patient reports symptoms started at 1:00 yesterday She had difficult time sleeping and presents for further evaluation Denies any chest pain or shortness of breath denies any change in voice or breathing complaints Patient reports that she had similar symptoms many years ago however denies any change in medications denies any recent contact With anything that she feels could have caused a reaction she does have peanut allergy And questions possible contact with that Allergies: Coded Allergies: PEANUT (Verified Allergy, Severe, Anaphylaxis, 09/09/18) DIPHENHYDRAMINE (Verified Allergy, Mild, Itching, 09/09/18) IBUPROFEN (Verified Allergy, Unknown, 06/16/19) TOMATO (Verified Allergy, Unknown, Itching, 09/09/18) Patient History Past Medical History: see triage record Now: No Reviewed Nursing Documentation: PMH: Agreed; PSxH: Agreed Nursing Documentation-PMH Past Medical History: No Stated History Hx Cardiac Problems: Yes - MURMUR Hx Hypertension: Yes Hx Gastrointestinal Problems: Yes - Acid reflux Hx Neurological Problems: Yes - Sjogren's syndrome, Raynaud's syndrome, osteoarthritis Hx Dizziness: Yes Hx Headaches: Yes Hx Numbness: Yes - R HAND Review of Systems All Other Systems: negative except mentioned in HPI Physical Exam Vital Signs Date Time Temp Pulse Resp B/P (MAP) Pulse Ox O2 Delivery O2 Flow Rate FiO2 06/16/19 08:48 97.9 93 20 130/94 (106) 99 Room Air Sp02 EP Interpretation: reviewed, normal General Appearance: well appearing, no apparent distress Head: normocephalic, atraumatic Eyes: bilateral eye PERRL, bilateral eye EOMI ENT: hearing grossly normal, normal pharynx, TMs + canals normal, uvula midline Neck: full range of motion, supple, no meningismus, no bony tend Respiratory: lungs clear, normal breath sounds, no rhonchi, no respiratory distress, no retraction, no accessory muscle use Cardiovascular #1: normal peripheral pulses, regular rate, rhythm, no edema, no gallop, no JVD, no murmur Gastrointestinal: normal bowel sounds, non tender, soft, no mass, no organomegaly, non-distended, no guarding, no hernia, no pulsatile mass, no rebound Musculoskeletal: normal inspection Neurologic: motor strength/tone normal, cross tie cutter III-XII nml as tested, oriented x3 , sensory intact, responsive Psychiatric: mood/affect normal Skin: other - Patient does have a diffuse rash involving the upper torso and arms lower extremity, urticarial in nature, airway is patent Lymphatic: normal inspection, no adenopathy Medical Decision Making Diagnostic Impression: Primary Impression: Rash Additional Impressions: Rash due to allergy Rash and nonspecific skin eruption ER Course Patient's reaction appears to be fairly systemic in nature Denies any change in medications Patient has significant findings that I believe requires, steroids, along with other histamine blocking medication however patient refuses any other medication and reports that she only wants hydroxizine Patient is alert and appropriate has full decision-making capacity she understands that my recommendation would be further medications for this type of reaction and again refusing other medications at this time Last Vital Signs Date Time Temp Pulse Resp B/P (MAP) Pulse Ox O2 Delivery O2 Flow Rate FiO2 06/16/19 09:01 97.9 94 20 130/94 99 Room Air Status: improved Disposition: HOME, SELF-CARE Condition: Improved Scripts Hydroxyzine Hcl (HYDROXYZINE HCL) 25 Mg Tablet 25 MG PO Q8HR for 7 Days, #21 TAB Prov: Jass Morris DO 06/16/19 Additional Instructions: Patient is provided with the discharge instructions notified to follow up with primary doctor in the next 2-3 days otherwise return to the er with any worsening symptoms. Please note that this report is being documented using [employer] technology. This can lead to erroneous entry secondary to incorrect interpretation by the dictating instrument. Jass Morris DO Jun 16, 2019 09:17
[2019-06-16] MEDS ORDERED: HYDROXYZINE HCL25 M1 PO (09:32)
[2019-06-16 09:38] VITALS: BP 127/87
--- NOTE | 2019-06-16 09:39 | NUR ---
ER DISCHARGE NOTE: Patient is cleared to be discharged per ERMD, pt is aox4, on room air, with stable vital signs. pt was given dc and prescription instructions, pt was able to verbalize understanding, pt id band removed. pt is able to ambulate with steady gait. pt took all belongings.
== END 2019-06-16 09:40 | disposition home or self-care (01) ==
LOC: EMR 09:25
DX: R21 Rash and other nonspecific skin eruption (principal); T78.40XA Allergy, unspecified, initial encounter; X58.XXXA Exposure to other specified factors, initial encounter; Z88.6 Allergy status to analgesic agent; I10 Essential (primary) hypertension; K21.9 Gastro-esophageal reflux disease without esophagitis; M19.90 Unspecified osteoarthritis, unspecified site; M35.00 Sjogren syndrome, unspecified; I73.00 Raynaud's syndrome without gangrene
CPT/HCPCS: 99282